=== PATIENT | female | born 2000 | race Hispanic/Latino ===

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

== ENCOUNTER 2024-07-24 09:54 | Emergency (ER) | payer SELFPAY ==
[~2024-07-24] VITALS: Ht 162.6 cm; Wt 79.4 kg
--- NOTE | 2024-07-24 10:59 | ERN ---
ED Note History of Present Illness Stated Complaint: THROAT HURTS Chief Complaint: Sore Throat Time Seen by MD: 09:57 Dictation: 24-year-old female presents to the ED for evaluation of throat pain goes onset one day ago. Patient denies any fever, cough or any other associated symptoms at this time. Patient states she had pain while swallowing food this morning. Allergies: Coded Allergies: No Known Drug Allergies (Unverified Allergy, Unknown, 07/24/24) Past Medical History Past Medical History: Gallstones Surgical History: None Review of System Dictation Constitutional: Negative for fever,chills, and weight loss Eyes: Negative for injury, pain,redness, and discharge ENT: Positive for throat pain Negative for injury or swelling Cardiovascular: Negative for chest pain, palpitations, and edema Respiratory: Negative for shortness of breath, cough, and wheezing, Abdomen/GI: Negative for abdominal pain, nausea, vomiting, diarrhea, and constipation Back: Negative for injury and pain : Negative for injury, bleeding and discharge MS/Extremity: Negative for injury and deformity Skin: Negative for rash, and discoloration Neuro: Negative for headache, weakness, numbness, tingling, and seizure Psych: Negative for suicide ideation, homicidal ideation, and hallucinations Initial Vital Sign VS Vital Signs Date Time Temp Pulse Resp B/P (MAP) Pulse Ox O2 Delivery O2 Flow Rate FiO2 07/24/24 09:55 98.4 82 12 122/80 100 Room Air 0 07/24/24 11:23 21 Physical Exam Dictation General: awake, alert, NAD Head/Face: Normocephalic, atraumatic Eyes: PERRL, EOMI, vision at baseline ENT: oral cavity clear, TMs clear, no signs of infection Neck: Trachea midline, supple, no nuchal rigidity Cardiovascular: RRR, normal S1/S2, No MRGs, no JVD Respiratory: CTAB, no respiratory distress, No rales or wheezes Abdomen: Soft, non-tender, non-distended, normal bowel sounds, no guarding or rebound. Skin: Warm, dry, normal turgor, no rash MS/Extremity: Pulses equal, no cyanosis, neurovascular intact, FROM Neuro: COAx4, GCS 15, strength 5/5, CN 2-12 intact, normal cerebellar exam, normal gait, Psych: Normal behavior, mood, and affect normal Results (Laboratory/Radiology) Laboratory/Radiology Laboratory Tests Test 07/24/24 10:00 Group A Streptococcus Rapid negative (NEGATIVE) Labs Reviewed?: Yes ED Course ED Course Orders Procedure Category Date Status Time Rapid (Group A Strep) LAB 07/24/24 Complete 09:56 Covid19 (Sars Antigen LAB 07/24/24 Logged Rapid) 10:02 Influenza Type A & B, LAB 07/24/24 Logged Rapid 10:02 Mag/Alum/Simeth 30ml PHA 07/24/24 Complete (Maalox Plus 30ml) 11:00 Current Medications Medications (Trade) Dose Ordered Sig/Trisha Route PRN Reason Start Time Stop Time Status Last Admin Dose Admin Al Hydroxide/Mg Hydroxide (MAALox PLUS 30ML) 15 ml ONCE ONCE PO 07/24/24 11:00 07/24/24 11:01 DC 07/24/24 11:17 Vital Signs Date Time Temp Pulse Resp B/P (MAP) Pulse Ox O2 Delivery O2 Flow Rate FiO2 07/24/24 11:23 98.1 59 17 116/64 98 Room Air* 0 21 07/24/24 09:55 98.4 82 12 122/80 100 Room Air 0 Medical Decision Making MDM MDM: Differential diagnosis: Sore throat, strep throat Risk of complication and/or morbidity or mortality of patient management: None Medications-Per medication reconciliation Need for hospitalization: Patient does not meet criteria for hospitalization. Need for emergency major/minor surgery: No There are no social concerns with this patient. I independently interpreted the test that were performed, results were reviewed by me and considered findings on radiology if ordered. DX & DISP Disposition: Discharge Departure Impression: Primary Impression: Sore throat Condition: Stable Referrals: SELF,REFERRAL (PCP) TRISTA REYES MD July 24, 2024 10:59
[2024-07-24] MEDS: MAG/ALUM/SIMETH 30 ML UDCUP PO ONE (11:17)
[2024-07-24 11:23] VITALS: BP 116/64; PULSE 59; RESP 17; TEMP 98; O2SAT 98
== END 2024-07-24 11:32 | disposition home or self-care (01) ==
LOC: EDH 09:54
DX: J02.9 Acute pharyngitis, unspecified (principal)
CPT/HCPCS: 87880; 99283

== ENCOUNTER 2024-08-28 01:30 | Inpatient (IN) | payer SELFPAY ==
[~2024-08-28] VITALS: Ht 162.6 cm; Wt 77.6 kg
--- NOTE | 2024-08-28 01:44 | ERN ---
ED Note History of Present Illness Stated Complaint: ABD PAIN Chief Complaint: Abdominal Pain Time Seen by MD: 01:34 Time Seen by Midlevel: 01:38 Dictation: Ms. Perez is a 24 year old female with history of cholelithiasis who presented to the Emergency Department this morning for evaluation of abdominal pain. She states that approximately 1 hour ago she developed right upper quadrant pain which she rated 10/10 and accompanied by nausea with emesis x4. She states the pain occurred after eating some fried chicken strips. She states she had a similar episode, albeit not as severe, in February 2024 and was told she had gallstones. She denies recent illness, fever, chills, shortness of breath, cough, chest pain, palpitations, edema, hematemesis, constipation, diarrhea, melena, hematochezia, dysuria, headache, dizziness, or focal weakness/paresthesia Allergies: Coded Allergies: No Known Drug Allergies (Unverified Allergy, Unknown, 07/24/24) Past Medical History Past Medical History: Gallstones Surgical History: None PSYCH History: no pertinent psych hx Social History: Negative, Lives with family RN Note Reviewed/Agreed w/PFSH: Yes Review of System Dictation REVIEW OF SYSTEMS: CONSTITUTIONAL: Patient denies fevers, chills, sweats and weight changes. EYES: Patient denies any visual symptoms. EARS, NOSE, AND THROAT: No difficulties with hearing. No symptoms of rhinitis or sore throat. CARDIOVASCULAR: Patient denies chest pains, palpitations, orthopnea and paroxysmal nocturnal dyspnea. RESPIRATORY: No dyspnea on exertion, no wheezing or cough. GI: No diarrhea, constipation, hematochezia or melena. Reports right upper quadrant abdominal pain accompanied by nausea and vomiting. Symptoms started after eating some fried chicken strips. States she was diagnosed with gallstones in February. : No urinary hesitancy or dribbling. No nocturia or urinary frequency. No abnormal urethral discharge. MUSCULOSKELETAL: No myalgias or arthralgias. NEUROLOGIC: No chronic headaches, no seizures. Patient denies numbness, tingling or weakness. PSYCHIATRIC: Patient denies problems with mood disturbance. No problems with anxiety. ENDOCRINE: No excessive urination or excessive thirst. DERMATOLOGIC: Patient denies any rashes or skin changes. Initial Vital Sign VS Vital Signs Date Time Temp Pulse Resp B/P (MAP) Pulse Ox O2 Delivery O2 Flow Rate FiO2 08/28/24 01:31 97.2 66 18 129/87 98 Room Air 08/28/24 02:08 0 21 Physical Exam Dictation Vital signs: Reviewed. Afebrile. Constitutional: Restless/uncomfortable. Mother at bedside. Head/Face: Normocephalic, atraumatic. Eyes: Periorbital areas with no swelling, redness, or edema. Lids and lashes are normal. Conjunctival injection is absent. Sclera anicteric. Pupils equal, round, reactive to light. ENT: Pinnas intact and no signs of trauma or erythema. Ear canals clear and no discharge. TMs no erythema. No nasal discharge or bleeding noted. Oropharynx with no exudate, redness, swelling, masses, exudates, or evidence of obstruction. Uvula midline. Mucous membranes slightly dry. Neck: Trachea midline, no masses palpated, and no cervical lymphadenopathy. No swelling. Supple, full range of motion. Chest/Axilla: No tenderness, no crepitus, no paradoxical movement, no retractions. Cardiovascular: Regular rate, regular rhythm, no murmur, no gallops. Symmetric pulses. No peripheral edema. Respiratory: Respirations even and unlabored. Lung sounds clear; no wheezes, rales or rhonchi. Room air spo2 98%. Gastrointestinal: Inspection is normal. No distention is appreciated. Bowel sounds are normal. No mass or organomegaly . Tenderness RUQ. + [place] sign. : Negative CVA tenderness bilaterally. Has not yet voided. Neurological: Normal speech, gross motor function intact, gross sensory function intact. No focal weakness/Paresthesia. Musculoskeletal/Extremities: All extremities have full range of motion, no pain or tenderness on palpation. Symmetric pulses. Integumentary: Intact. Skin is normal color (not jaundice, warm, and dry. Cap refill less than 2 seconds. Results (Laboratory/Radiology) Laboratory/Radiology Laboratory Tests Test 08/28/24 01:55 08/28/24 03:07 White Blood Count 19.1 K/uL (4.8-10.8) H Red Blood Count 4.63 MIL/uL (4.00-5.50) Hemoglobin 12.4 g/dL (12.0-16.0) Hematocrit 39.2 % (36-48) Mean Corpuscular Volume 84.7 fL (79-99) Mean Corpuscular Hemoglobin 26.8 pg (27.0-33.0) L Mean Corpuscular Hemoglobin Concent 31.6 g/dL (32.0-36.0) L Red Cell Distribution Width 13.6 % (11.0-15.5) Platelet Count 429 K/uL (130-400) H Mean Platelet Volume 9.6 fL (7.5-10.5) Immature Granulocyte % (Auto) 0.4 % (0-1) Neutrophils (%) (Auto) 88.4 % (40.0-77.0) H Lymphocytes (%) (Auto) 8.2 % (21.0-51.0) L Monocytes (%) (Auto) 2.7 % (3.0-13.0) L Eosinophils (%) (Auto) 0.1 % (0.0-8.0) Basophils (%) (Auto) 0.2 % (0.0-5.0) Neutrophils # (Auto) 16.9 K/uL (1.8-7.7) H Lymphocytes # (Auto) 1.6 K/uL (1.0-4.8) Monocytes # (Auto) 0.5 K/uL (0.1-1.0) Eosinophils # (Auto) 0.02 K/uL (0.00-0.70) Basophils # (Auto) 0.04 K/uL (0.00-0.20) Absolute Immature Granulocyte (auto 0.08 K/uL (0-1) Nucleated Red Blood Cells 0.0 % (0.0-0.19) White Cell Morphology Comment See comments Sodium Level 141 mmol/L (136-145) Potassium Level 3.4 mmol/L (3.5-5.1) L Chloride Level 102 mmol/L (101-111) Carbon Dioxide Level 29 mmol/L (21-32) Blood Urea Nitrogen 15 mg/dL (7-18) Creatinine 0.7 mg/dL (0.5-1.0) Glomerular Filtration Rate Calc 125 mL/min (>90) Random Glucose 135 mg/dL (70-105) H Total Calcium 8.8 mg/dL (8.5-10.1) Total Bilirubin 0.3 mg/dL (0.2-1.0) Direct Bilirubin 0.1 mg/dL (0.0-0.3) Aspartate Amino Transf (AST/SGOT) 21 U/L (10-37) Alanine Aminotransferase (ALT/SGPT) 40 U/L (12-78) Alkaline Phosphatase 91 U/L (50-136) Total Protein 7.6 g/dL (6.0-8.3) Albumin 3.9 g/dL (3.5-5.0) Lipase 56 U/L (16-77) Urine Color YELLOW (YELLOW) Urine Appearance CLOUDY (CLEAR) H Urine pH 5.5 (5.0-8.0) Urine Specific [place] 1.028 (1.001-1.031) Urine Protein 20 mg/dL (NEGATIVE) H Urine Glucose (UA) NEGATIVE mg/dL (NEGATIVE) Urine Ketones 60 mg/dL (NEGATIVE) H Urine Occult Blood SMALL (NEGATIVE) H Urine Nitrate NEGATIVE (NEGATIVE) Urine Bilirubin NEGATIVE mg/dL (NEGATIVE) Urine Urobilinogen 0.2 mg/dL (0.2-1.0) Urine Leukocyte Esterase NEGATIVE Annette/uL Urine RBC 6-10 /HPF (0-1) H Urine WBC 6-10 /HPF (0-1) H Urine Squamous Epithelial Cells FEW /HPF (0-2) Urine Amorphous Crystals (Auto) RARE /LPF (None Seen) Urine Bacteria None /HPF (None Seen) Urine HCG, Qualitative NEGATIVE (NEGATIVE) Labs Reviewed?: Yes CT Scan Comment: RUQ US preliminary read: Small stone in neck of the gallbladder Wall thickness 2.5mm CBD 2.5mm ED Course ED Course Orders Procedure Category Date Status Time Cbc With Differential LAB 08/28/24 Complete 01:34 Basic Metabolic Panel LAB 08/28/24 Complete 01:34 Hepatic Function Panel LAB 08/28/24 Complete 01:34 Urinalysis Profile LAB 08/28/24 Complete 01:34 ,Urine Test LAB 08/28/24 Complete 01:34 0.9%Nacl 1000ml (Ns PHA 08/28/24 Complete 1000ml) 02:00 Ondansetron 4mg Inj PHA 08/28/24 Complete (Zofran 4mg Inj) 02:00 Hydromorphone 0.5mg PHA 08/28/24 Complete Syg (Dilaudid 0.5mg 02:00 Us Abdominal Ruq\Ltd US 08/28/24 Taken 01:34 Drug Screen Urine LAB 08/28/24 In Process 01:43 Hydromorphone 0.5mg PHA 08/28/24 Complete Syg (Dilaudid 0.5mg 03:00 Zosyn 3.375gm+Ns 50ml PHA 08/28/24 Complete (Zosyn 3.375gm+Ns 03:30 Lipase LAB 08/28/24 Complete 03:04 Pantoprazole 40mg Inj PHA 08/28/24 Complete (Protonix 40mg Inj 03:30 Culture Urine TERESA 08/28/24 In Process 03:29 Current Medications Medications (Trade) Dose Ordered Sig/Trisha Route PRN Reason Start Time Stop Time Status Last Admin Dose Admin Hydromorphone HCl (DiLAUDid 0.5MG INJ) 0.5 mg ONCE ONCE IVP 08/28/24 02:00 08/28/24 02:01 DC 08/28/24 02:04 Hydromorphone HCl (DiLAUDid 0.5MG INJ) 0.5 mg ONCE ONCE IVP 08/28/24 03:00 08/28/24 03:01 DC 08/28/24 03:16 Ondansetron HCl (zoFRAN 4MG INJ) 4 mg ONCE ONCE IVP 08/28/24 02:00 08/28/24 02:01 DC 08/28/24 02:04 Pantoprazole Sodium (PROTonix 40MG INJ) 40 mg ONCE ONCE IVP 08/28/24 03:30 08/28/24 03:31 DC Piperacillin Sod/ Tazobactam Sod (Zosyn 3.375gm+NS 50ml) 3.375 gm ONCE ONCE IV 08/28/24 03:30 08/28/24 03:31 DC 08/28/24 03:16 Sodium Chloride 1,000 ml @ 0 mls/hr ONCE ONCE IV 08/28/24 02:00 08/28/24 02:01 DC 08/28/24 02:03 Vital Signs Date Time Temp Pulse Resp B/P (MAP) Pulse Ox O2 Delivery O2 Flow Rate FiO2 08/28/24 02:08 97.5 65 16 119/73 98 Room Air* 0 21 08/28/24 01:31 97.2 66 18 129/87 98 Room Air Vital signs remained stable; afebrile and normotensive with room air SpO2 98%. Laboratory findings as noted below. WBC 19.1, K 3.4, and glucose 135. Lipase 56. UA + protein, ketones, and blood. HCG negative. RUQ ultrasound revealed small stone in the gallbladder neck, GB wall 2.5 mm, and CBD 2.5 mm; cholelithiasis without cholecystitis. She continues with abdominal pain and nausea despite doses Dilaudid. While in the ED she also received doses Zofran, Zosyn, and NS 1000ml IV as bolus. Findings were discussed with SAI Bentley who accepts patient for admission to Hospitalist group. Medical Decision Making MDM MDM: Differential diagnosis: Cholelithiasis, cholecystitis, UTI Rationale: Tests considered and ordered secondary to shared decision making include: labs, ECG and radiology Previous outside records reviewed: Old ER visits. Risk of complication and/or morbidity or mortality of patient management: None Medications-Per medication reconciliation Need for hospitalization: Patient does meet criteria for hospitalization. Need for emergency major/minor surgery: No There are no social concerns with this patient. Prescription drug management Prescriptions will include symptomatic care Patient's prior external medical records from other ER visits were reviewed by me as indicated. Prior testing and results from previous visits were reviewed. Prior tests were taken into account with medical decision making and resource utilization, independent historian/historians were used to obtain complete me dical history. I independently interpreted the test that were performed, results were reviewed by me and considered findings on radiology if ordered. Medical management and examination interpretation discussions were had by me with other qualified healthcare professionals as indicated for the patient's care. DX & DISP Disposition: Inpatient Departure Impression: Primary Impression: Cholelithiasis Additional Impressions: Hypokalemia, Intractable right upper quadrant abdominal pain, Leukocytosis Condition: Stable Assign Patient to: Dr. Charles Batista Referrals: SELF,REFERRAL (PCP) ELIN LALA NP Aug 28, 2024 01:43
[2024-08-28] MEDS: 0.9%NACL 1000ML 1,000 ML IV ONE (02:03)
[2024-08-28] MEDS: ondanSETRON 4MG INJ IVP ONE (02:04)
[2024-08-28] MEDS: hydroMORPHone 0.5 MG SYG (0.5MG/0.5ML) IVP ONE ×2 (02:04→03:16)
[2024-08-28 02:15] LABS: BASOPHILS # (AUTO) 0.04 K/uL (0.00-0.20); BASOPHILS % (AUTO) 0.2 % (0.0-5.0); EOSINOPHILS # (AUTO) 0.02 K/uL (0.00-0.70); EOSINOPHILS % (AUTO) 0.1 % (0.0-8.0); HEMATOCRIT 39.2 % (36-48); IMMATURE GRANULOCYTE ABSOLUTE 0.08 K/uL (0-1); LYMPHOCYTES # (AUTO) 1.6 K/uL (1.0-4.8); LYMPHOCYTES % (AUTO) 8.2 % (21.0-51.0); MEAN CORPUSCULAR HEMOGLOBIN 26.8 pg (27.0-33.0); MEAN CORPUSCULAR HGB CONC 31.6 g/dL (32.0-36.0); MEAN CORPUSCULAR VOLUME 84.7 fL (79-99); MONOCYTES # (AUTO) 0.5 K/uL (0.1-1.0); MONOCYTES % (AUTO) 2.7 % (3.0-13.0); NEUTROPHILS # (AUTO) 16.9 K/uL (1.8-7.7); NEUTROPHILS % (AUTO) 88.4 % (40.0-77.0); PLATELET COUNT (AUTO) 429 K/uL (130-400); RED BLOOD CELL COUNT(AUTO) 4.63 MIL/uL (4.00-5.50); RED CELL DISTRIBUTION WIDTH 13.6 % (11.0-15.5); WHITE BLOOD COUNT (AUTO) 19.1 K/uL (4.8-10.8)
[2024-08-28 02:26] LABS: CREATININE 0.7 mg/dL (0.5-1.0); POTASSIUM 3.4 mmol/L (3.5-5.1)
[2024-08-28 02:30] LABS: ALBUMIN 3.9 g/dL (3.5-5.0); BILIRUBIN,DIRECT 0.1 mg/dL (0.0-0.3); BILIRUBIN,TOTAL 0.3 mg/dL (0.2-1.0); TOTAL PROTEIN, SERUM 7.6 g/dL (6.0-8.3)
[2024-08-28] MEDS: ZOSYN 3.375GM +NS 50ML IV ONE (03:16)
[2024-08-28 03:24] LABS: APPEARANCE,URINE CLOUDY (CLEAR); BILIRUBIN,URINE NEGATIVE (NEGATIVE); COLOR,URINE YELLOW (YELLOW); GLUCOSE, URINE (UA) NEGATIVE (NEGATIVE); KETONES,URINE 60 mg/dL (NEGATIVE); LEUKOCYTE ESTERASE ,URINE NEGATIVE Leu/uL (NEGATIVE); NITRATE,URINE NEGATIVE (NEGATIVE); OCCULT BLOOD,URINE SMALL (NEGATIVE); PH,URINE 5.5 (5.0-8.0); PROTEIN,URINE 20 mg/dL (NEGATIVE); UROBILINOGEN,URINE 0.2 mg/dL (0.2-1.0)
[2024-08-28 03:26] LABS: ADD UA MICROSCOPIC YES
[2024-08-28 03:29] LABS: HCG,QUALITATIVE URINE NEGATIVE (NEGATIVE); MUCUS,URINE MANY LPF (None Seen); SQUAMOUS EPITHELIAL CELL,UR FEW /HPF (0-2)
[2024-08-28] MEDS: PANTOPrazole 40 MG/VIAL IVP ONE (03:44)
[2024-08-28 03:50] LABS: AMPHET/METH SCREEN,URINE NEGATIVE (NEGATIVE); BARBITURATE SCREEN, URINE NEGATIVE (NEGATIVE); BENZODIAZEPINES SCREEN,URINE NEGATIVE (NEGATIVE); CANNABINOID SCREEN,URINE POSITIVE (NEGATIVE); COCAINE SCREEN,URINE NEGATIVE (NEGATIVE); OPIATE SCREEN,URINE NEGATIVE (NEGATIVE); PHENCYCLIDINE SCREEN,URINE NEGATIVE (NEGATIVE)
--- NOTE | 2024-08-28 03:59 | NUR ---
Assumed patient care at this time from El BARAJAS./DONNELL
--- NOTE | 2024-08-28 04:25 | HP ---
History of Present Illness Reason for Visit: abdominal pain History of Present Illness Ms. Perez is a 24-year-old female that was seen and examined today on 08/28/2024. Patient is a good historian of personal health. Patient's mother Karuna is at bedside Patient reports that she came to the emergency department with a chief complaint of abdominal pain. Onset was midnight on 08/28/2024. Location is right upper quadrant. Duration is on and off. Character is described as sharp and pressure. There was no alleviating factors. Symptoms are aggravated with eating. Patient reports associated vomiting x5 episodes. Patient also reports she was diagnosed with gallstones in February of 2024. Today in the emergency department WBCs 19, potassium 3.4. Abdominal ultrasound pending radiology interpretation however preliminary report suggests that there was indeed gallstones as verbalize with the this patient from prior diagnosis. Emergency room physician recommended that patient be admitted so she could be evaluated by General surgery Service. Past Medical History ADDITIONAL PAST MEDICAL HISTORY: [Cholelithiasis diagnosed in February of 2024] SOCIAL HISTORY: [Negative for tobacco use, alcohol use. Patient admits to occasional use of marijuana. Patient lives with the mother, Zohra. Patient is typically independent of all her ADLs. Patient denies difficulty paying her bills.] SURGICAL HISTORY: [place] teeth extraction x4] Review of Systems General: No Fever, No Chills, No Night Sweats, No Fatigue, No Malaise, No Appetite, No Other HEENT: No Head Aches, No Visual Changes, No Eye Pain, No Ear Pain, No Dysphasia, No Sinus Congestion, No Post Nasal Drip, No Sore Throat, No Other Pulmonary: No Dyspnea, No Cough, No Pleuritic Chest Pain, No Other Cardiovascular: No: Chest Pain, Palpitations, Orthopnea, Paroxysmal Noc. Dyspnea, Edema, Lt Headedness, Other Gastrointestinal: Nausea, Vomiting, Abdominal Pain; No: Diarrhea, Constipation, Melena, Hematochezia, Other Genitourinary: No Dysuria, No Frequency, No Incontinence, No Hematuria, No Retention, No Other Musculoskeletal: No: other, neck pain, shoulder pain, arm pain, back pain, hand pain, leg pain, foot pain Skin: No Urticaria, No Rash, No Other Neurological: No: Weakness, Numbness, Incoordination, Change in speech, Confusion, Seizures, Other Allergies: Coded Allergies: No Known Drug Allergies (Unverified Allergy, Unknown, 07/24/24) Exam Vital Signs Vital Signs Date Time Temp Pulse Resp B/P (MAP) Pulse Ox O2 Delivery O2 Flow Rate FiO2 08/28/24 04:02 98.2 60 16 112/67 97 Room Air* 0 21 General Appearance: Alert, Oriented X3, Cooperative, No acute distress HEENT: Atraumatic, EOMI, Mucous membr. moist/pink Respiratory: Clear to auscultation, Normal air movement, NL respiratory effort Cardiovascular: Regular rate, Regular rhythm, Normal S1, Normal S2 Abdominal: Normal bowel sounds, Soft, No tenderness Extremities: No edema Skin: No significant lesion Neuro: Strength at 5/5 X4 ext, Sensation intact, Cranial nerves 3-12 NL Psych/Mental Status: Mental status NL, Mood NL, Thoughts/Content NL Assessment/Plan ASSESSMENT: [ Cholelithiasis, POA Leukocytosis, POA Hypokalemia, POA Nausea, POA Vomiting, POA ] PLAN: [ Admit patient to medical floor as inpatient status. Cholelithiasis: Patient will be followed by General surgery Service. Keep patient NPO except for medications with tiny sips of water Check preprocedure labs, CBC, BMP, magnesium, phosphorus, PTT, UA, type and screen, EKG, CXR Lactated Ringer's at 100 mL/HR IV fluid maintenance therapy Nausea, vomiting: As-needed antiemetic, Zofran As needed analgesia, morphine Leukocytosis: Empiric antibiotic therapy with Zosyn Check procalcitonin, follow up with the results Check lactic acid, follow up with the results Check blood culture, follow up with the results] Hypokalemia: Replace potassium per hospital protocol GI prophylaxis, famotidine DVT prophylaxis, Jamal's and SCDs ADVANCED CARE PLANNING 1. Which of the following were discussed? Hospice Care - Yes Therapeutic options - yes Advance Directives - Yes - patient states she does not have any advance directives in place at this time, however her mom can make decisions for her if she becomes unable. Other discussions - patient wishes to remain a full code at this time 2. Discussed with who? Patient 3. Voluntary nature of this service was explained to the patient? Yes 4. Amount of time spent - ___16 minutes____ 5. Reviewed by Physician? (if this service was performed by NPP) Yes This document was generated in part using voice recognition software, occasional wrong word or sound alike substitutions may have occurred due to the inherent limitations of voice recognition software. Read the chart carefully and recognize using context, where the substitutions have occurred. Although every effort was made to edit the content, director of quality improvement and typing errors may occur ATTESTATION BY PHYSICIAN I have seen and examined the patient. I reviewed the documentation, medical decision making, and treatment plan as noted by the mid-level provider above. I agree with the findings and plan of care. RIANA BAUM [facility] Aug 28, 2024 04:25
[2024-08-28] MEDS: LACTATED RINGERS 1000ML 1,000 ML IV SCH (04:26)
[2024-08-28] MEDS: PoTASSium chloRIDE 20MEQ/100ML 100 ML IV PRN (04:27)
[2024-08-28] MEDS ORDERED: hydrALAZine 20MG/ML VIAL IV PRN (04:30)
[2024-08-28 04:31] LABS: INR 1.04 (0.85-1.15)
[2024-08-28 04:32] LABS: MAGNESIUM 1.9 mg/dL (1.80-2.40); PHOSPHORUS 2.6 mg/dL (2.5-4.9)
--- NOTE | 2024-08-28 04:39 | EKG ---
[facility] Test Date: 2024-08-28 Test Time: 04:36:53 Pat Name: ROLANDO JONES Department: [facility] Room: 327 Gender: F Director External Communications: [id number] : 2000 Requested By: RIANA BAUM Order Number: [id number] Reading MD: Manish Weir Measurements Intervals [place] Rate: 53 P: -30 VT: 141 QRS: 55 QRSD: 81 T: 32 QT: 421 QTc: 396 Interpretive Statements Sinus rhythm No previous ECG available for comparison Electronically Signed On 08-28-2024 14:44:37 CDT by Manish Weir Please click the below link to view image of tracing.
[2024-08-28] MEDS: morPHINE 2 MG SYG IVP PRN (06:42)
--- NOTE | 2024-08-28 07:32 | HMCIMG ---
US ABDOMINAL RUQ\E\LTD HISTORY: Pain COMPARISON: None TECHNIQUE: Right upper quadrant abdominal ultrasound study was performed. FINDINGS: Liver measured 14 cm. The visualized portion of the pancreas is within normal limits. Liver is echogenic consistent with liver parenchymal disease. Small gallstone is seen in the gallbladder neck region. Common duct measures 2.5 mm. No evidence of gallbladder wall thickening is seen. Right kidney measures 10 x 5 x 5 cm. No hydronephrosis is seen of the right kidney. IMPRESSION: 1. Small gallstone in the gallbladder neck region. No ductal dilatation is seen. 2. No hydronephrosis is seen.
--- NOTE | 2024-08-28 08:11 | HMCIMG ---
CHEST 1VW HISTORY: Preop COMPARISON: None FINDINGS: A frontal projection of the chest was obtained. No acute pulmonary infiltrates is seen. The heart is normal in size. No evidence of aortic calcification is seen. IMPRESSION: 1. No acute pulmonary infiltrate is seen.
[2024-08-28 09:52] LABS: MEAN CORPUSCULAR HEMOGLOBIN 26.6 pg (27.0-33.0); MEAN CORPUSCULAR HGB CONC 30.8 g/dL (32.0-36.0); MEAN CORPUSCULAR VOLUME 86.4 fL (79-99); PLATELET COUNT (AUTO) 406 K/uL (130-400); RED CELL DISTRIBUTION WIDTH 13.7 % (11.0-15.5); WHITE BLOOD COUNT (AUTO) 20.1 K/uL (4.8-10.8)
[2024-08-28 09:59] LABS: CREATININE 0.6 mg/dL (0.5-1.0); POTASSIUM 4.2 mmol/L (3.5-5.1)
[2024-08-28 10:03] LABS: ALBUMIN 3.6 g/dL (3.5-5.0); BILIRUBIN,TOTAL 0.4 mg/dL (0.2-1.0); TOTAL PROTEIN, SERUM 7.5 g/dL (6.0-8.3)
[2024-08-28] MEDS: FAMOTIDINE 20MG TAB PO SCH (10:31)
[2024-08-28] MEDS: acetaMINOPHEN 325 MG TAB PO PRN (10:31)
--- NOTE | 2024-08-28 11:28 | NUR ---
GEN SURGEON DR BARTLETT WOULD LIKE PT TO HAVE A HIDA SCAN STAT.
[2024-08-28 11:31] VITALS: TEMP 97.9
--- NOTE | 2024-08-28 11:42 | NUR ---
FIRST ATTEMP AT REPORT
[2024-08-28] MEDS: ZOSYN 3.375GM +NS 50ML IV SCH (11:49)
--- NOTE | 2024-08-28 11:50 | NUR ---
DR WONG AT BEDSIDE
--- NOTE | 2024-08-28 12:02 | NUR ---
SECOND ATTEMPT AT CALLING REPORT
--- NOTE | 2024-08-28 12:15 | NUR ---
REPORT GIVEN TO YVROSE
[2024-08-28 12:40] VITALS: BP 102/54; PULSE 62; RESP 18; TEMP 97.7
--- NOTE | 2024-08-28 14:56 | NUR ---
MET W PT AND MOM AT BEDSIDE FOR DC PLANNING. PT SLEEPING, MOM SUPPLIED INFO, MOM STATES PATIENT LIVES WITH HER AND A SIBLING; IS FULLY INDEPENDENT,CURRENTLY UNEMPLOYED, NO DME OR SERVICES. DRIVES, MOM WILL PROVIDE TRANSPORT HOME. [employer] INFO GIVEN. STATES PT IS CLIENT OF [facility] AND GOES THERE TFOR ALL HER HEALTHCARE NEEDSMOM STATED PATIENT " HAS SOME KIND OF INSURANCE IT IS LIKE A MEDICAID BUT I DON'T HAVE THE PAPERWORK' ADVISED MOM TO TRY TO FIND TO BRING TO HOSPITAL. DCP IS HOME. Addendum: 08/28/24 at 1500 by GREGORY JAMES RN CM Amended: Links added.
[2024-08-28 16:00] VITALS: BP 100/52; PULSE 54; RESP 19; TEMP 98
--- NOTE | 2024-08-28 16:49 | PN ---
Patient was downstairs getting HIDA scan. I stopped by her room twice to evaluate her. Spoke to her mother and told her that if the HIDA scan is positive for acute cholecystitis then I will perform a robotic cholecystectomy. I will make her NPO at midnight just in case the HIDA scan comes back positive for acute cholecystitis. Vitals/Labs Vital Signs Date Time Temp Pulse Resp B/P (MAP) Pulse Ox O2 Delivery O2 Flow Rate FiO2 08/28/24 16:00 98.1 54 19 100/52 100 Room Air 08/28/24 12:40 0 21 Laboratory Tests 08/28/24 01:55 08/28/24 07:26 Medications Current Medications Sodium Chloride 1,000 ml @ 0 mls/hr ONCE ONCE IV Last administered on 08/28/24at 02:03; Start 08/28/24 at 02:00; Stop 08/28/24 at 02:01; Status DC Ondansetron HCl 4 mg ONCE ONCE IVP Last administered on 08/28/24at 02:04; Start 08/28/24 at 02:00; Stop 08/28/24 at 02:01; Status DC Hydromorphone HCl 0.5 mg ONCE ONCE IVP Last administered on 08/28/24at 02:04; Start 08/28/24 at 02:00; Stop 08/28/24 at 02:01; Status DC Hydromorphone HCl 0.5 mg ONCE ONCE IVP Last administered on 08/28/24at 03:16; Start 08/28/24 at 03:00; Stop 08/28/24 at 03:01; Status DC Piperacillin Sod/ Tazobactam Sod 3.375 gm ONCE ONCE IV Last administered on 08/28/24at 03:16; Start 08/28/24 at 03:30; Stop 08/28/24 at 03:31; Status DC Pantoprazole Sodium 40 mg ONCE ONCE IVP Last administered on 08/28/24at 03:44; Start 08/28/24 at 03:30; Stop 08/28/24 at 03:31; Status DC Acetaminophen 650 mg Q6H PRN PO Last administered on 08/28/24at 10:31; Start 08/28/24 at 04:30; Stop 09/27/24 at 04:29 Famotidine 20 mg DAILY PO Last administered on 08/28/24at 10:31; Start 08/28/24 at 09:00; Stop 09/27/24 at 08:59 Ondansetron HCl 4 mg Q6H PRN IV; Start 08/28/24 at 04:30; Stop 09/27/24 at 04:29 Morphine Sulfate 2 mg Q4H PRN IVP Last administered on 08/28/24at 06:42; Start 08/28/24 at 04:30; Stop 09/04/24 at 04:29 Hydralazine HCl 10 mg Q6H PRN IV; Start 08/28/24 at 04:30; Stop 09/27/24 at 04:29 Lactated Ringer's 1,000 ml @ 100 mls/hr Q10H IV Last administered on 08/28/24at 04:26; Start 08/28/24 at 04:30; Stop 09/27/24 at 04:29 Potassium Chloride 100 ml @ 50 mls/hr AD PRN IV Last administered on 08/28/24at 04:27; Start 08/28/24 at 04:30; Stop 09/27/24 at 04:29 Magnesium Sulfate 50 ml @ 0 mls/hr PROTOCOL PRN IV; Start 08/28/24 at 04:30; Stop 09/27/24 at 04:29 Piperacillin Sod/ Tazobactam Sod 3.375 gm Q8H IV Last administered on 08/28/24at 11:49; Start 08/28/24 at 11:00; Stop 09/07/24 at 10:59 Ketorolac Tromethamine 15 mg Q6H PRN IV; Start 08/28/24 at 12:30; Stop 09/02/24 at 12:29 LANEY BARTLETT MD Aug 28, 2024 16:49
--- NOTE | 2024-08-28 16:56 | HMCIMG ---
NM HIDA WITH EF/CCK REASON: CHOLELITHIASIS. COMPARISON: None TECHNIQUE: Hepatobiliary imaging study was performed with 7 mCi of technetium Choletec through intravenous route. 2 hour delayed images were obtained. FINDINGS: Normal visualization of bile activity is seen within one hour. There is nonvisualization of gallbladder activity at 2 hours suggestive of acute cholecystitis. IMPRESSION: Nonvisualization of gallbladder activity at 2 hours suggestive of acute cholecystitis in appropriate setting.
[2024-08-28 20:00] VITALS: BP 116/65; PULSE 74; RESP 20; TEMP 98.4; O2SAT 100
[2024-08-28] MEDS: ketOROlac 15MG/ML VIAL (15MG/ML) IV PRN (20:37)
[2024-08-29] VITALS (29 sets, daily range): BP systolic 92–128; BP diastolic 49–82; PULSE 54–80; RESP 14–20; TEMP 96.9–99.7; O2SAT 97–100
[2024-08-29 05:06] LABS: BASOPHILS # (AUTO) 0.03 K/uL (0.00-0.20); BASOPHILS % (AUTO) 0.2 % (0.0-5.0); EOSINOPHILS # (AUTO) 0.03 K/uL (0.00-0.70); EOSINOPHILS % (AUTO) 0.2 % (0.0-8.0); HEMATOCRIT 32.3 % (36-48); IMMATURE GRANULOCYTE ABSOLUTE 0.05 K/uL (0-1); LYMPHOCYTES # (AUTO) 3.4 K/uL (1.0-4.8); LYMPHOCYTES % (AUTO) 27.8 % (21.0-51.0); MEAN CORPUSCULAR HEMOGLOBIN 27.1 pg (27.0-33.0); MEAN CORPUSCULAR HGB CONC 31.9 g/dL (32.0-36.0); MONOCYTES # (AUTO) 0.9 K/uL (0.1-1.0); MONOCYTES % (AUTO) 7.6 % (3.0-13.0); NEUTROPHILS # (AUTO) 7.8 K/uL (1.8-7.7); NEUTROPHILS % (AUTO) 63.8 % (40.0-77.0); PLATELET COUNT (AUTO) 356 K/uL (130-400); RED CELL DISTRIBUTION WIDTH 13.8 % (11.0-15.5); WHITE BLOOD COUNT (AUTO) 12.2 K/uL (4.8-10.8)
[2024-08-29 05:13] LABS: CREATININE 0.6 mg/dL (0.5-1.0); POTASSIUM 3.8 mmol/L (3.5-5.1)
--- NOTE | 2024-08-29 09:32 | PN ---
[facility] PROGRESS NOTE Date of Service: Aug 29, 2024 Time of Service: 09:27 SUBJECTIVE: Ms. Perez is a 24-year-old female that was seen and examined on 08/28/2024. Patient is a good historian of personal health. Patient's mother Karuna was at bedside Patient reported that she came to the emergency department with a chief complaint of abdominal pain. Location is right upper quadrant. Duration on and off. Character is described as sharp and pressure. There was no alleviating factors. Symptoms aggravated with eating. Patient reported associated vomiting x5 episodes. Patient also reported she was diagnosed with gallstones in February of 2024. In the emergency department WBCs 19, potassium 3.4. Chest x-ray no acute pulmonary infiltrates. Abdominal ultrasound small gallstones in the gallbladder neck region, no ductal dilatation seen, no hydronephrosis seen. Patient admitted for further evaluation and medical management. 08/29 patient admitted to the medical floor, blood pressure 105/59, afebrile, saturating normal on room air, white blood cell count trending down, 12.2, hemoglobin 10.3, hematocrit 32.3, platelet count of 356, sodium 139, potassium 3.8, BUN of 10, creatinine 0.6, total calcium 8.5, liver enzymes with a total bilirubin of 0.4, AST of 33, ALT of 47, alkaline phosphatase of 89. Toxicology screen positive for marijuana. Urine test negative. Patient evaluated by General surgery, HIDA scan requested, nonvisualization of gallbladder activity at 2:00 a.m. suggestive of acute cholecystitis. Patient on Zosyn IV pharmacy to dose. Currently on pain control with morphine 2 mg IV q.4 hours p.r.n. and Toradol 50 mg IV every 6 hours as needed. Counseling provided in terms of marijuana use. During my visit the patient comfortably in bed, alert oriented x3, getting good pain control with current medical management, NPO, scheduled for laparoscopic cholecystectomy today per discussion with the RN. REVIEW OF SYSTEMS CONSTITUTIONAL: Denies fevers, chills, or night sweats. No unintentional weight loss reported. NEUROLOGICAL: Denies headache, amaurosis fugax, motor weakness, sensory deficit, vertigo/spinning sensation, gait abnormalities, or tremors. ENT: No hearing loss, otalgia, otorrhea, rhinitis, rhinorrhea, hoarseness, or sore throat. CARDIOVASCULAR: Denies any exertional angina, dyspnea on exertion, orthopnea, paroxysmal nocturnal dyspnea, palpitations, life-threatening arrhythmias, claudication. PULMONARY: Denies any shortness of breath, cough, phlegm/sputum, hemoptysis, pleuritic chest pain. SLEEP: Denies morning headaches, daytime somnolence or napping. Denies difficulty falling asleep, staying asleep, waking from sleep. Denies knowledge of snoring. GASTROINTESTINAL: Denies any type of dysphagia to either liquids or solids. Denies nausea, vomiting, pyrosis, early satiety, abdominal pain, diarrhea, constipation, or changes in stool consistency or caliber. Denies coffee-ground emesis, hematemesis, hematochezia, or melanotic stools. GENITOURINARY: Denies frequency, urgency, nocturia, hematuria or incontinence (Storage/Irritative symptoms.) Low urinary stream, straining to void, urinary intermittency or hesitancy, splitting of the voiding stream, terminal dribbling. ENDOCRINOLOGIC: Denies polyuria, polydipsia, polyphagia or heat/cold intolerances. HEMATOLOGIC: Denies thrombophilia/previous clots, or coagulopathy/bleeding disorders. ONCOLOGIC: Denies personal history of malignancy. DERMATOLOGIC: Denies rashes or pruritus. PSYCHIATRIC: Denies any suicidal or homicidal ideation. Denies hallucinations. PHYSICAL EXAM GENERAL APPEARANCE: The patient is awake, alert, and oriented, in no acute cardiopulmonary distress. NEUROLOGICAL: Cranial nerves II-XII grossly intact. Motor is 5/5 in bilateral upper and lower extremities proximal to distal. No sensory deficits. HEENT: Face is symmetric. Pupils are equal and reactive. Extraocular movements are intact. NECK: Supple. No JVD. No thyromegaly. No submental, submandibular, pre-/postauricular, occipital or supraclavicular lymphadenopathy. CHEST: Normal chest expansion. No Telemetry. LUNGS: Absence of any rales, rhonchi or any wheezing. CARDIOVASCULAR: Regular. S1 and S2 normal. No appreciable rubs, murmurs or gallops. ABDOMEN: Soft, nontender, and nondistended. There is no rebound, voluntary guarding, or rigidity. : Deferred. No Hines. EXTREMITIES: Non-edematous and not cyanotic. No clubbing. Good capillary refill. SKIN: No skin breakdown. Vital Signs (last 8hr) Date Time Temp Pulse Resp B/P (MAP) Pulse Ox O2 Delivery O2 Flow Rate FiO2 08/29/24 07:56 99.7 78 18 105/59 97 Room Air 08/29/24 04:00 97.5 69 20 92/52 98 Room Air LABS: Laboratory: Test 08/29/24 04:55 08/28/24 07:26 08/28/24 03:07 08/28/24 01:55 Range/Units White Blood Count 12.2 #H 4.8-10.8 K/uL Red Blood Count 3.80 L 4.00-5.50 MIL/uL Hemoglobin 10.3 L 12.0-16.0 g/dL Hematocrit 32.3 L 36-48 % Mean Corpuscular Volume 85.0 79-99 fL Mean Corpuscular Hemoglobin 27.1 27.0-33.0 pg Mean Corpuscular Hemoglobin Concent 31.9 L 32.0-36.0 g/dL Red Cell Distribution Width 13.8 11.0-15.5 % Platelet Count 356 130-400 K/uL Mean Platelet Volume 9.6 7.5-10.5 fL Immature Granulocyte % (Auto) 0.4 0-1 % Neutrophils (%) (Auto) 63.8 40.0-77.0 % Lymphocytes (%) (Auto) 27.8 21.0-51.0 % Monocytes (%) (Auto) 7.6 3.0-13.0 % Eosinophils (%) (Auto) 0.2 0.0-8.0 % Basophils (%) (Auto) 0.2 0.0-5.0 % Neutrophils # (Auto) 7.8 H 1.8-7.7 K/uL Lymphocytes # (Auto) 3.4 1.0-4.8 K/uL Monocytes # (Auto) 0.9 0.1-1.0 K/uL Eosinophils # (Auto) 0.03 0.00-0.70 K/uL Basophils # (Auto) 0.03 0.00-0.20 K/uL Absolute Immature Granulocyte (auto 0.05 0-1 K/uL Nucleated Red Blood Cells 0.0 0.0-0.19 % Sodium Level 139 136-145 mmol/L Potassium Level 3.8 3.5-5.1 mmol/L Chloride Level 105 101-111 mmol/L Carbon Dioxide Level 30 21-32 mmol/L Blood Urea Nitrogen 10 7-18 mg/dL Creatinine 0.6 0.5-1.0 mg/dL Glomerular Filtration Rate Calc 130 >90 mL/min Random Glucose 84 70-105 mg/dL Total Calcium 8.5 8.5-10.1 mg/dL Red Blood Cell Morphology See comments Lactic Acid Level 0.9 0.8-2.5 mmol/L Magnesium Level 2.00 1.80-2.40 mg/dL Total Bilirubin 0.4 # 0.2-1.0 mg/dL Aspartate Amino Transf (AST/SGOT) 33 10-37 U/L Alanine Aminotransferase (ALT/SGPT) 47 12-78 U/L Alkaline Phosphatase 89 50-136 U/L Total Protein 7.5 6.0-8.3 g/dL Albumin 3.6 3.5-5.0 g/dL Urine Color YELLOW YELLOW Urine Appearance CLOUDY H CLEAR Urine pH 5.5 5.0-8.0 Urine Specific [place] 1.028 1.001-1.031 Urine Protein 20 H NEGATIVE mg/dL Urine Glucose (UA) NEGATIVE NEGATIVE mg/dL Urine Ketones 60 H NEGATIVE mg/dL Urine Occult Blood SMALL H NEGATIVE Urine Nitrate NEGATIVE NEGATIVE Urine Bilirubin NEGATIVE NEGATIVE mg/dL Urine Urobilinogen 0.2 0.2-1.0 mg/dL Urine Leukocyte Esterase NEGATIVE NEGATIVE Annette/uL Urine RBC 6-10 H 0-1 /HPF Urine WBC 6-10 H 0-1 /HPF Urine Squamous Epithelial Cells FEW 0-2 /HPF Urine Amorphous Crystals (Auto) RARE None Seen /LPF Urine Bacteria None None Seen /HPF Urine HCG, Qualitative NEGATIVE NEGATIVE Urine Opiates Screen NEGATIVE NEGATIVE Urine Barbiturates Screen NEGATIVE NEGATIVE Urine Phencyclidine Screen NEGATIVE NEGATIVE Urine Amphetamines Screen NEGATIVE NEGATIVE Urine Benzodiazepines Screen NEGATIVE NEGATIVE Urine Cocaine Screen NEGATIVE NEGATIVE Urine Marijuana (THC) Screen POSITIVE H NEGATIVE White Cell Morphology Comment See comments Prothrombin Time 11.0 9.6-11.6 SEC Prothromb Time International Ratio 1.04 0.85-1.15 Activated Partial Thromboplast Time 28.0 26.3-35.5 SEC Phosphorus Level 2.6 2.5-4.9 mg/dL Direct Bilirubin 0.1 0.0-0.3 mg/dL Lipase 56 16-77 U/L Procalcitonin < 0.05 L 0.05-0.5 ng/mL Current Medications Medications (Trade) Dose Ordered Sig/Trisha Route PRN Reason Start Time Stop Time Status Last Admin Dose Admin Acetaminophen (TYLenol 325MG TAB) 650 mg Q6H PRN PO TEMPERATURE GREATER THAN 101.5 08/28/24 04:30 09/27/24 04:29 08/28/24 10:31 650 MG Famotidine (Pepcid 20mg Tab) 20 mg DAILY PO 08/28/24 09:00 09/27/24 08:59 08/28/24 10:31 20 MG Hydralazine HCl (APRESOLine 20MG INJ) 10 mg Q6H PRN IV For:SBP above 160;DBP above 90 08/28/24 04:30 09/27/24 04:29 Ketorolac Tromethamine (toRADol) 15 mg Q6H PRN IV MODERATE PAIN (4-6) 08/28/24 12:30 09/02/24 12:29 08/28/24 20:37 15 MG Lactated Ringer's 1,000 ml @ 100 mls/hr Q10H IV 08/28/24 04:30 09/27/24 04:29 08/29/24 09:01 100 MLS/HR Magnesium Sulfate 50 ml @ 0 mls/hr PROTOCOL PRN IV h 08/28/24 04:30 09/27/24 04:29 Morphine Sulfate (morPHINE 2MG SYG) 2 mg Q4H PRN IVP SEVERE PAIN (7-10) 08/28/24 04:30 09/04/24 04:29 08/29/24 07:02 2 MG Ondansetron HCl (zoFRAN 4MG INJ) 4 mg Q6H PRN IV NAUSEA/VOMITING 08/28/24 04:30 09/27/24 04:29 Piperacillin Sod/ Tazobactam Sod (Zosyn 3.375gm+NS 50ml) 3.375 gm Q8H IV 08/28/24 11:00 09/07/24 10:59 08/29/24 02:31 3.375 GM Potassium Chloride 100 ml @ 50 mls/hr AD PRN IV POTASSIUM PROTOCOL 08/28/24 04:30 09/27/24 04:29 08/28/24 04:27 50 MLS/HR DIAGNOSTICS / RADIOLOGY: [ ] ASSESSMENT: Sepsis, POA Acute cholecystitis, POA Leukocytosis, POA Hypokalemia, POA Nausea, POA Vomiting, POA Toxicology screen positive for marijuana PLAN: patient admitted to the medical floor, blood pressure 105/59, afebrile, saturating normal on room air, white blood cell count trending down, 12.2, hemoglobin 10.3, hematocrit 32.3, platelet count of 356, sodium 139, potassium 3.8, BUN of 10, creatinine 0.6, total calcium 8.5, liver enzymes with a total bilirubin of 0.4, AST of 33, ALT of 47, alkaline phosphatase of 89. Toxicology screen positive for marijuana. Urine test negative. Patient evaluated by General surgery, HIDA scan requested, nonvisualization of gallbladder activity at 2:00 a.m. suggestive of acute cholecystitis. Patient on Zosyn IV pharmacy to dose. Currently on pain control with morphine 2 mg IV q.4 hours p.r.n. and Toradol 50 mg IV every 6 hours as needed. Counseling provided in terms of marijuana use. During my visit the patient comfortably in bed, alert oriented x3, getting good pain control with current medical management, NPO, scheduled for laparoscopic cholecystectomy today per discussion with the RN. NEURO: Minimize central acting medications as possible. Fall Precautions. Well lighted room through the day and minimize interruptions through the night to prevent acute delirium. PULMONARY: Supplemental 02 as needed BiPAP as necessary, for respiratory distress Titrate Fio2 to keep Spo2 > or = 90% DuoNebs and CPT as needed IS hourly while awake for pulmonary hygiene prn Out of bed to chair as tolerated Maintain aspiration precautions at all times CARDIOVASCULAR: Follow hemodynamics. Vital signs per facility protocol GI & NUTRITION: Continue nutritional support Aspirations precautions Prokinetic agents and laxatives as needed KIDNEYS & ELECTROLYTES: Strict monitoring of intake and output Daily weights Avoid nephrotoxic agents Monitor electrolytes and replace as needed Goal urine output of 30mL/hr or 0.5mL/kg/hr Medications to be dosed according to renal function. Avoid contrast if possible ENDOCRINE: Maintain blood glucose between 100-180 at all times. Insulin sliding scale for blood glucose management Hypoglycemia and hyperglycemia protocol in place INFECTIOUS DISEASE: Trend temperature, WBC and procalcitonin level Follow cultures, deescalate antibiotics as soon as possible. Panculture if new onset fever HEMATOLOGY & COAGULATION: Monitor H&H. Keep Hgb > 7 Transfuse 1 unit of PRBC for Hgb < 7 Transfuse 1 pack of platelets of platelets < 20, 000 Watch for any signs and symptoms of bleeding SKIN: Pressure ulcer prevention per facility protocol Specialty mattress as needed ORTHO/REHAB Continue PT/OT PRN: MEDICATIONS Tylenol 650 mg po every 4 hrs for fever zofran 4 mg IV every 6 hrs for n/v Hydralazine 5 mg IV every 4 hrs systolic pressure > 160 bowel regiment: lactulose 20 gm PO BID PRN constipation Supportive measures: Continue GI and DVT prophylaxis Disposition: Pending improvement in clinical condition All questions answered time spent: > 35 min CASPER WONG MD Aug 29, 2024 09:32
--- NOTE | 2024-08-29 11:17 | NUR ---
PT OFF UNIT FOR PLANNED SX.
[2024-08-29] MEDS ORDERED: BUPIvacaine HCL/EPINEPHrine/PF 0.25% 10ML VIAL IJ ONE (11:37)
[2024-08-29] MEDS: INDOCYANINE GREEN 25 MG VIAL IJ ONE ×2 (12:00→17:31)
[2024-08-29] MEDS ORDERED: dexaMETHasone SOD PHOSPHATE 4 MG/ML 1ML VIAL ONE (12:10)
[2024-08-29] MEDS ORDERED: LIDOCAINE HCL MPF 1% 5ML VIAL ONE (12:10)
[2024-08-29] MEDS ORDERED: NEOSTIGMINE METHYLSULFATE 1MG/ML IV ONE (12:11)
[2024-08-29] MEDS ORDERED: proPOFol 10 MG/ML 20ML VIAL IV ONE (12:11)
[2024-08-29] MEDS ORDERED: GLYCOPYRROLATE 0.2 MG/ML 5 ML VIAL ONE (12:11)
[2024-08-29] MEDS ORDERED: SUCCINYLCHOLINE CHLORIDE 20 MG/ML 10 ML VIAL ONE (12:11)
[2024-08-29] MEDS ORDERED: ondanSETRON 4MG INJ ONE (12:11)
[2024-08-29] MEDS ORDERED: FENTanyl CITRate PF 50 MCG/1 ML 2ML VIAL ONE ×4 (12:12→15:00)
[2024-08-29] MEDS ORDERED: MIDAZOLAM HCL 1 MG/ML 2ML VIAL ONE (12:12)
[2024-08-29] MEDS ORDERED: rocuRONium bROMide 10MG/1ML 5ML VL ONE (12:12)
--- NOTE | 2024-08-29 13:10 | CONS ---
GENERAL SURGERY CONSULTATION NOTE Date/Time Patient Seen: [ 08/29/2024 11:00 AM] Requesting Physician: [Dr. Batista ] Reason for Consultation: [Cholecystitis with cholelithiasis ] History of Present Illness: [ 24-year-old female complaining of right upper quadrant pain that started yesterday and progressively became worse. Patient states she was also having episodes of nausea and vomiting. Patient presented to the ED which workup showed WBCs at 19.1, H and H 10.3 and 32.3, normal LFTs and bilirubin. Abdominal ultrasound done shows cholelithiasis, normal CBD. HIDA scan was done which does show positive for cholecystitis. Patient continues having right upper quadrant tenderness on examination. WBCs today down trended to 12.2. Patient has been NPO since yesterday. No past surgical history and no past medical history. Dr. Padgett will be taking patient to the OR at around noon today.] Past Medical History: [ ] Past Surgical History: [ ] Family History: [ ] Social History: [ ] Habits: [Never] smoker. [Denies] alcohol consumption. [Denies] illicit drug use Current Medications Medications (Trade) Dose Ordered Sig/Trisha Route Start Time Stop Time Status Last Admin Dose Admin Famotidine (Pepcid 20mg Tab) 20 mg DAILY PO 08/28/24 09:00 09/27/24 08:59 08/28/24 10:31 20 MG Lactated Ringer's 1,000 ml @ 100 mls/hr Q10H IV 08/28/24 04:30 09/27/24 04:29 08/29/24 09:01 100 MLS/HR Piperacillin Sod/ Tazobactam Sod (Zosyn 3.375gm+NS 50ml) 3.375 gm Q8H IV 08/28/24 11:00 09/07/24 10:59 08/29/24 11:14 3.375 GM Review of Systems: CONST: [No fever, fatigue, or weight changes.] EYES: [No recent vision problems.] ENT: [No congestion, ear pain, or sore throat.] C/V: [No chest pain, palpitations, or edema.] RESP: [No cough, congestion, wheezing or shortness of breath.] GI: [RUQ abdominal pain, nausea, vomiting.] : [No dysuria.] SKIN: [No rash.] NEURO: [No headache, focal numbness or weakness.] Physical Examination: GENERAL: [No acute distress, female, comfortably resting in bed with mother at bedside.] HEAD: [Normocephalic.] EYES: [Nonicteric.] ENT: [Hearing grossly intact.] NECK: [Supple. There is no tenderness, lymphadenopathy, or masses. No thyromegal.] LUNGS: [Clear breath sounds bilaterally.] HEART: [Normal rate and rhythm.] VASC: [Peripheral pulses +2 bilaterally.] ABD: [RUQ tenderness, Bowel sounds normal, soft.] : [Not examined] EXT: [No edema.] SKIN: [No rashes or lesions noted.] NEURO: [Awake, alert, and oriented x3. No focal sensory or strength deficits noted.] Vital Signs (last 8hr) Date Time Temp Pulse Resp B/P (MAP) Pulse Ox O2 Delivery O2 Flow Rate FiO2 08/29/24 11:29 97.0 80 16 117/70 99 Room Air 08/29/24 07:56 99.7 78 18 105/59 97 Room Air Laboratory: [ ] Hematology Labs: Test 08/29/24 04:55 08/28/24 07:26 08/28/24 01:55 Range/Units White Blood Count 12.2 #H 4.8-10.8 K/uL Red Blood Count 3.80 L 4.00-5.50 MIL/uL Hemoglobin 10.3 L 12.0-16.0 g/dL Hematocrit 32.3 L 36-48 % Mean Corpuscular Volume 85.0 79-99 fL Mean Corpuscular Hemoglobin 27.1 27.0-33.0 pg Mean Corpuscular Hemoglobin Concent 31.9 L 32.0-36.0 g/dL Red Cell Distribution Width 13.8 11.0-15.5 % Platelet Count 356 130-400 K/uL Mean Platelet Volume 9.6 7.5-10.5 fL Immature Granulocyte % (Auto) 0.4 0-1 % Neutrophils (%) (Auto) 63.8 40.0-77.0 % Lymphocytes (%) (Auto) 27.8 21.0-51.0 % Monocytes (%) (Auto) 7.6 3.0-13.0 % Eosinophils (%) (Auto) 0.2 0.0-8.0 % Basophils (%) (Auto) 0.2 0.0-5.0 % Neutrophils # (Auto) 7.8 H 1.8-7.7 K/uL Lymphocytes # (Auto) 3.4 1.0-4.8 K/uL Monocytes # (Auto) 0.9 0.1-1.0 K/uL Eosinophils # (Auto) 0.03 0.00-0.70 K/uL Basophils # (Auto) 0.03 0.00-0.20 K/uL Absolute Immature Granulocyte (auto 0.05 0-1 K/uL Nucleated Red Blood Cells 0.0 0.0-0.19 % Red Blood Cell Morphology See comments White Cell Morphology Comment See comments Chemistry Labs: Test 08/29/24 04:55 08/28/24 07:26 08/28/24 01:55 Range/Units Sodium Level 139 136-145 mmol/L Potassium Level 3.8 3.5-5.1 mmol/L Chloride Level 105 101-111 mmol/L Carbon Dioxide Level 30 21-32 mmol/L Blood Urea Nitrogen 10 7-18 mg/dL Creatinine 0.6 0.5-1.0 mg/dL Glomerular Filtration Rate Calc 130 >90 mL/min Random Glucose 84 70-105 mg/dL Total Calcium 8.5 8.5-10.1 mg/dL Lactic Acid Level 0.9 0.8-2.5 mmol/L Magnesium Level 2.00 1.80-2.40 mg/dL Total Bilirubin 0.4 # 0.2-1.0 mg/dL Aspartate Amino Transf (AST/SGOT) 33 10-37 U/L Alanine Aminotransferase (ALT/SGPT) 47 12-78 U/L Alkaline Phosphatase 89 50-136 U/L Total Protein 7.5 6.0-8.3 g/dL Albumin 3.6 3.5-5.0 g/dL Phosphorus Level 2.6 2.5-4.9 mg/dL Direct Bilirubin 0.1 0.0-0.3 mg/dL Lipase 56 16-77 U/L Procalcitonin < 0.05 L 0.05-0.5 ng/mL Coagulation Labs: Test 08/28/24 01:55 Range/Units Prothrombin Time 11.0 9.6-11.6 SEC Prothromb Time International Ratio 1.04 0.85-1.15 Activated Partial Thromboplast Time 28.0 26.3-35.5 SEC Diagnostics / Radiology: [Copy/Paste Echos/Imaging Report here] Assessment: [Cholecystitis with cholelithiasis ] Plan: [Patient will be going to the OR today at noon with Dr. Padgett for lap cholecystectomy Keep NPO Continue with IV fluids and IV antibiotics Patient and mother were instructed on risks of surgery including bleeding, infection, delayed wound healing, injury to other organs, pulmonary embolus and/or DVT Patient and mother verbalized understanding well and agreed to proceed with scheduled surgery, consent has been signed Surgical team will continue to follow closely Dr. Padgett updated on patient's status ] ATTESTATION BY PHYSICIAN I have seen and examined the patient. I reviewed the documentation, medical decision making, and treatment plan as noted by the mid-level provider above. I agree with the findings and plan of care. MD JANA Veras LETICIA A [employer] Aug 29, 2024 13:10
[2024-08-29] MEDS ORDERED: BUPIvacaine/PF 0.25% 10ML VIAL IJ ONE (13:12)
--- NOTE | 2024-08-29 15:26 | OP ---
Operative Note: DATE OF PROCEDURE: 08/29/24 SURGEON: LANEY BARTLETT MD [employer] PROGRAM ASSISTANT: [facility] [place] staff ANESTHESIA: General ANESTHESIOLOGIST/ANESTHESIOLOGY TEACHER: Enma PREOPERATIVE DIAGNOSIS: Acute cholecystitis POSTOPERATIVE DIAGNOSIS: Acute gangrenous cholecystitis SYNOPSIS: Acute gangrenous cholecystitis and large fatty liver PROCEDURE: Robotic assisted cholecystectomy with ICG green immunofluorescence ESTIMATED BLOOD LOSS: 100 mL INDICATIONS: 24-year-old female patient patient who was admitted with right upper quadrant abdominal pain. Imaging studies confirmed acute cholecystitis. She had a white count of 20.. A robotic cholecystectomy was indicated during this admission. Informed consent was obtained prior to the procedure which included a discussion about the possible risks such as bleeding, infection, bile duct injury, bile leak, and injury to surrounding viscera. DESCRIPTION OF PROCEDURE: Patient was taken to the operating room placed on the operating table in supine position. Next general anesthesia was induced and the patient was intubated. There abdomen was prepped and draped in a sterile fashion. A time-out was called and the patient's identity procedure and preoperative antibiotics were confirmed. I insufflated the abdominal cavity with a Veress needle. Once a pneumoperitoneum was established I entered the abdominal cavity using a 12 mm Optiview port in the left mid abdomen. I placed three additional 8 mm ports across a straight line. The robot was docked to the patient. Pertinent findings: The gallbladder was acutely inflamed with beginning changes of gangrene noted. She has a large fatty liver as well. The gallbladder was retracted in a cephalad direction. I began to carefully dissect out the hepatic cystic triangle. I used ICG green to confirm ductal anatomy. The critical view was established. I identified the cystic artery. This was clipped and divided. The cystic duct was identified. This was clipped and divided. I then cauterized the gallbladder off the liver fossa bed. I checked the liver bed for bleeding. Hemostasis was obtained with electrocautery, Alexi and packing. The gallbladder was placed in a specimen bag and removed from the abdominal cavity. I left a 19 English Russell drain in the right upper quadrant in the gallbladder fossa. I closed the fascia of the 12 mm port with a 1-0 Vicryl suture on a Jeff-Shirley closure device. The pneumoperitoneum was evacuated. Skin incisions were closed with luann. Dressings were applied. Sponge needle instrument counts were accurate. Patient's anesthesia was reversed and they were extubated and taken to recovery room in stable condition. LANEY BARTLETT MD Aug 29, 2024 15:26
[2024-08-29] MEDS: morPHINE 2 MG SYG ONE (15:31)
[2024-08-29] MEDS: FENTanyl CITRate PF 50 MCG/1 ML 2ML VIAL ONE (15:36)
[2024-08-29] MEDS: acetaMINOPHEN 100 ML ONE (17:31)
[2024-08-29] MEDS: SIMETHICONE 80 MG TAB.CHEW PO SCH (17:32)
[2024-08-29] MEDS: traMADol HCL 50 MG TABLET PO PRN (22:21)
[2024-08-30] VITALS (8 sets, daily range): BP systolic 81–143; BP diastolic 49–75; PULSE 58–95; RESP 16–18; TEMP 97.9–98.8; O2SAT 95–96
[2024-08-30 04:28] LABS: HEMATOCRIT 33.1 % (36-48); MEAN CORPUSCULAR HEMOGLOBIN 26.8 pg (27.0-33.0); MEAN CORPUSCULAR HGB CONC 31.1 g/dL (32.0-36.0); RED BLOOD CELL COUNT(AUTO) 3.85 MIL/uL (4.00-5.50); RED CELL DISTRIBUTION WIDTH 13.5 % (11.0-15.5); WHITE BLOOD COUNT (AUTO) 14.5 K/uL (4.8-10.8)
[2024-08-30 04:53] LABS: ALBUMIN 2.9 g/dL (3.5-5.0); BILIRUBIN,TOTAL 0.5 mg/dL (0.2-1.0); CREATININE 0.5 mg/dL (0.5-1.0); POTASSIUM 4.3 mmol/L (3.5-5.1); TOTAL PROTEIN, SERUM 6.4 g/dL (6.0-8.3)
[2024-08-30] MEDS: LIDOCAINE 4% ADH..PATCH TP SCH (08:54)
--- NOTE | 2024-08-30 10:15 | PN ---
[facility] PROGRESS NOTE Date of Service: Aug 30, 2024 Time of Service: 10:13 SUBJECTIVE: Ms. Perez is a 24-year-old female that was seen and examined on 08/28/2024. Patient is a good historian of personal health. Patient's mother Karuna was at bedside Patient reported that she came to the emergency department with a chief complaint of abdominal pain. Location is right upper quadrant. Duration on and off. Character is described as sharp and pressure. There was no alleviating factors. Symptoms aggravated with eating. Patient reported associated vomiting x5 episodes. Patient also reported she was diagnosed with gallstones in February of 2024. In the emergency department WBCs 19, potassium 3.4. Chest x-ray no acute pulmonary infiltrates. Abdominal ultrasound small gallstones in the gallbladder neck region, no ductal dilatation seen, no hydronephrosis seen. Patient admitted for further evaluation and medical management. 08/29 patient admitted to the medical floor, blood pressure 105/59, afebrile, saturating normal on room air, white blood cell count trending down, 12.2, hemoglobin 10.3, hematocrit 32.3, platelet count of 356, sodium 139, potassium 3.8, BUN of 10, creatinine 0.6, total calcium 8.5, liver enzymes with a total bilirubin of 0.4, AST of 33, ALT of 47, alkaline phosphatase of 89. Toxicology screen positive for marijuana. Urine test negative. Patient evaluated by General surgery, HIDA scan requested, nonvisualization of gallbladder activity at 2:00 a.m. suggestive of acute cholecystitis. Patient on Zosyn IV pharmacy to dose. Currently on pain control with morphine 2 mg IV q.4 hours p.r.n. and Toradol 50 mg IV every 6 hours as needed. Counseling provided in terms of marijuana use. During my visit the patient comfortably in bed, alert oriented x3, getting good pain control with current medical management, NPO, scheduled for laparoscopic cholecystectomy today per discussion with the RN. 08/30 patient remains admitted to the medical floor, comfortably in bed, alert oriented x3, getting IV antibiotics, blood pressure 143/59, afebrile, saturating normal on room air, hemoglobin 10.3, hematocrit 33.1, white blood cell count of 14.5, platelet count of 338. Sodium 139, potassium 4.3, BUN of five, creatinine 0.5, magnesium 2.0, liver enzymes mildly elevated. Patient underwent successful robotic assisted cholecystectomy with ICG green immunofluorescence secondary to acute gangrenous cholecystitis. Tolerated the procedure well. Patient remains on Zosyn IV. Currently on full liquid diet, continue to follow surgical input and recommendation. REVIEW OF SYSTEMS CONSTITUTIONAL: Denies fevers, chills, or night sweats. No unintentional weight loss reported. NEUROLOGICAL: Denies headache, amaurosis fugax, motor weakness, sensory deficit, vertigo/spinning sensation, gait abnormalities, or tremors. ENT: No hearing loss, otalgia, otorrhea, rhinitis, rhinorrhea, hoarseness, or sore throat. CARDIOVASCULAR: Denies any exertional angina, dyspnea on exertion, orthopnea, paroxysmal nocturnal dyspnea, palpitations, life-threatening arrhythmias, claudication. PULMONARY: Denies any shortness of breath, cough, phlegm/sputum, hemoptysis, pleuritic chest pain. SLEEP: Denies morning headaches, daytime somnolence or napping. Denies difficulty falling asleep, staying asleep, waking from sleep. Denies knowledge of snoring. GASTROINTESTINAL: Denies any type of dysphagia to either liquids or solids. Denies nausea, vomiting, pyrosis, early satiety, abdominal pain, diarrhea, constipation, or changes in stool consistency or caliber. Denies coffee-ground emesis, hematemesis, hematochezia, or melanotic stools. GENITOURINARY: Denies frequency, urgency, nocturia, hematuria or incontinence (Storage/Irritative symptoms.) Low urinary stream, straining to void, urinary intermittency or hesitancy, splitting of the voiding stream, terminal dribbling. ENDOCRINOLOGIC: Denies polyuria, polydipsia, polyphagia or heat/cold intolerances. HEMATOLOGIC: Denies thrombophilia/previous clots, or coagulopathy/bleeding disorders. ONCOLOGIC: Denies personal history of malignancy. DERMATOLOGIC: Denies rashes or pruritus. PSYCHIATRIC: Denies any suicidal or homicidal ideation. Denies hallucinations. PHYSICAL EXAM GENERAL APPEARANCE: The patient is awake, alert, and oriented, in no acute cardiopulmonary distress. NEUROLOGICAL: Cranial nerves II-XII grossly intact. Motor is 5/5 in bilateral upper and lower extremities proximal to distal. No sensory deficits. HEENT: Face is symmetric. Pupils are equal and reactive. Extraocular movements are intact. NECK: Supple. No JVD. No thyromegaly. No submental, submandibular, pre- /postauricular, occipital or supraclavicular lymphadenopathy. CHEST: Normal chest expansion. No Telemetry. LUNGS: Absence of any rales, rhonchi or any wheezing. CARDIOVASCULAR: Regular. S1 and S2 normal. No appreciable rubs, murmurs or gallops. ABDOMEN: Soft, nontender, and nondistended. There is no rebound, voluntary guarding, or rigidity. : Deferred. No Hines. EXTREMITIES: Non-edematous and not cyanotic. No clubbing. Good capillary refill. SKIN: No skin breakdown. Vital Signs (last 8hr) Date Time Temp Pulse Resp B/P (MAP) Pulse Ox O2 Delivery O2 Flow Rate FiO2 08/30/24 08:17 98.2 68 18 143/59 96 Room Air 08/30/24 04:00 97.9 58 16 99/56 100 Nasal Cannula 1.0 LABS: Laboratory: Test 08/30/24 03:51 08/29/24 04:55 Range/Units White Blood Count 14.5 H 4.8-10.8 K/uL Red Blood Count 3.85 L 4.00-5.50 MIL/uL Hemoglobin 10.3 L 12.0-16.0 g/dL Hematocrit 33.1 L 36-48 % Mean Corpuscular Volume 86.0 79-99 fL Mean Corpuscular Hemoglobin 26.8 L 27.0-33.0 pg Mean Corpuscular Hemoglobin Concent 31.1 L 32.0-36.0 g/dL Red Cell Distribution Width 13.5 11.0-15.5 % Platelet Count 338 130-400 K/uL Mean Platelet Volume 9.8 7.5-10.5 fL Nucleated Red Blood Cells 0.0 0.0-0.19 % Sodium Level 139 136-145 mmol/L Potassium Level 4.3 3.5-5.1 mmol/L Chloride Level 104 101-111 mmol/L Carbon Dioxide Level 31 21-32 mmol/L Blood Urea Nitrogen 5 L 7-18 mg/dL Creatinine 0.5 0.5-1.0 mg/dL Glomerular Filtration Rate Calc 136 >90 mL/min Random Glucose 108 H 70-105 mg/dL Total Calcium 8.9 8.5-10.1 mg/dL Magnesium Level 2.00 1.80-2.40 mg/dL Total Bilirubin 0.5 0.2-1.0 mg/dL Aspartate Amino Transf (AST/SGOT) 80 H 10-37 U/L Alanine Aminotransferase (ALT/SGPT) 90 H 12-78 U/L Alkaline Phosphatase 86 50-136 U/L Total Protein 6.4 6.0-8.3 g/dL Albumin 2.9 L 3.5-5.0 g/dL Immature Granulocyte % (Auto) 0.4 0-1 % Neutrophils (%) (Auto) 63.8 40.0-77.0 % Lymphocytes (%) (Auto) 27.8 21.0-51.0 % Monocytes (%) (Auto) 7.6 3.0-13.0 % Eosinophils (%) (Auto) 0.2 0.0-8.0 % Basophils (%) (Auto) 0.2 0.0-5.0 % Neutrophils # (Auto) 7.8 H 1.8-7.7 K/uL Lymphocytes # (Auto) 3.4 1.0-4.8 K/uL Monocytes # (Auto) 0.9 0.1-1.0 K/uL Eosinophils # (Auto) 0.03 0.00-0.70 K/uL Basophils # (Auto) 0.03 0.00-0.20 K/uL Absolute Immature Granulocyte (auto 0.05 0-1 K/uL Current Medications Medications (Trade) Dose Ordered Sig/Trisha Route PRN Reason Start Time Stop Time Status Last Admin Dose Admin Acetaminophen (TYLenol 325MG TAB) 650 mg Q6H PRN PO TEMPERATURE GREATER THAN 101.5 08/28/24 04:30 09/27/24 04:29 08/28/24 10:31 650 MG Famotidine (Pepcid 20mg Tab) 20 mg DAILY PO 08/28/24 09:00 09/27/24 08:59 08/30/24 08:54 20 MG Hydralazine HCl (APRESOLine 20MG INJ) 10 mg Q6H PRN IV For:SBP above 160;DBP above 90 08/28/24 04:30 09/27/24 04:29 Ketorolac Tromethamine (toRADol) 15 mg Q6H PRN IV MODERATE PAIN (4-6) 08/28/24 12:30 08/29/24 15:32 DC 08/28/24 20:37 15 MG Lactated Ringer's 1,000 ml @ 100 mls/hr Q10H IV 08/28/24 04:30 09/27/24 04:29 08/30/24 03:08 100 MLS/HR Lidocaine (Lidocaine Patch 4%) 1 each DAILY TP 08/30/24 09:00 09/29/24 08:59 08/30/24 08:54 1 EACH Magnesium Sulfate 50 ml @ 0 mls/hr PROTOCOL PRN IV h 08/28/24 04:30 09/27/24 04:29 Morphine Sulfate (morPHINE 2MG SYG) 2 mg Q4H PRN IVP SEVERE PAIN (7-10) 08/28/24 04:30 09/04/24 04:29 08/30/24 06:05 2 MG Ondansetron HCl (zoFRAN 4MG INJ) 4 mg Q6H PRN IV NAUSEA/VOMITING 08/28/24 04:30 09/27/24 04:29 Piperacillin Sod/ Tazobactam Sod (Zosyn 3.375gm+NS 50ml) 3.375 gm Q8H IV 08/28/24 11:00 09/07/24 10:59 08/30/24 03:04 3.375 GM Potassium Chloride 100 ml @ 50 mls/hr AD PRN IV POTASSIUM PROTOCOL 08/28/24 04:30 09/27/24 04:29 08/28/24 04:27 50 MLS/HR Simethicone (Mylicon) 80 mg QID PO 08/29/24 17:00 09/28/24 16:59 08/30/24 08:54 80 MG Tramadol HCl (UltRAM) 50 mg Q4H PRN PO MODERATE PAIN (4-6) 08/29/24 15:30 09/03/24 15:29 08/30/24 03:32 50 MG DIAGNOSTICS / RADIOLOGY: [ ] ASSESSMENT: Sepsis, POA Acute cholecystitis, POA Fatty liver infiltration Status post Robotic assisted cholecystectomy with ICG green immunofluorescence 08/29/2024 Leukocytosis, POA Hypokalemia, POA Nausea, POA Vomiting, POA Toxicology screen positive for marijuana PLAN: patient remains admitted to the medical floor, blood pressure 143/59, afebrile, saturating normal on room air, hemoglobin 10.3, hematocrit 33.1, white blood cell count of 14.5, platelet count of 338. Sodium 139, potassium 4.3, BUN of five, creatinine 0.5, magnesium 2.0, liver enzymes mildly elevated. Patient underwent successful robotic assisted cholecystectomy with ICG green immunofluorescence secondary to acute gangrenous cholecystitis. Tolerated the procedure well. Patient remains on Zosyn IV. Currently on full liquid diet, continue to follow surgical input and recommendation. NEURO: Minimize central acting medications as possible. Fall Precautions. Well lighted room through the day and minimize interruptions through the night to prevent acute delirium. PULMONARY: Supplemental 02 as needed BiPAP as necessary, for respiratory distress Titrate Fio2 to keep Spo2 > or = 90% DuoNebs and CPT as needed IS hourly while awake for pulmonary hygiene prn Out of bed to chair as tolerated Maintain aspiration precautions at all times CARDIOVASCULAR: Follow hemodynamics. Vital signs per facility protocol GI & NUTRITION: Continue nutritional support Aspirations precautions Prokinetic agents and laxatives as needed KIDNEYS & ELECTROLYTES: Strict monitoring of intake and output Daily weights Avoid nephrotoxic agents Monitor electrolytes and replace as needed Goal urine output of 30mL/hr or 0.5mL/kg/hr Medications to be dosed according to renal function. Avoid contrast if possible ENDOCRINE: Maintain blood glucose between 100-180 at all times. Insulin sliding scale for blood glucose management Hypoglycemia and hyperglycemia protocol in place INFECTIOUS DISEASE: Trend temperature, WBC and procalcitonin level Follow cultures, deescalate antibiotics as soon as possible. Panculture if new onset fever HEMATOLOGY & COAGULATION: Monitor H&H. Keep Hgb > 7 Transfuse 1 unit of PRBC for Hgb < 7 Transfuse 1 pack of platelets of platelets < 20, 000 Watch for any signs and symptoms of bleeding SKIN: Pressure ulcer prevention per facility protocol Specialty mattress as needed ORTHO/REHAB Continue PT/OT PRN: MEDICATIONS Tylenol 650 mg po every 4 hrs for fever zofran 4 mg IV every 6 hrs for n/v Hydralazine 5 mg IV every 4 hrs systolic pressure > 160 bowel regiment: lactulose 20 gm PO BID PRN constipation Supportive measures: Continue GI and DVT prophylaxis Disposition: Pending improvement in clinical condition All questions answered time spent: > 35 min CASPER WONG MD Aug 30, 2024 10:15
--- NOTE | 2024-08-30 16:20 | PN ---
GENERAL SURGERY PROGRESS NOTE Date/Time Patient Seen: [08/30/2024 ] Problem List: [24-year-old female with Cholecystitis with cholelithiasis ] Interval History: [24-year-old female, postop day 1., robotic assisted cholecystectomy with ICG by Dr. Padgett Gallbladder was gangrenous, so patient will need at least 48 hours of IV antibiotics DEMAR with serosanguineous output, about 90 cc in 24 hours Patient has been tolerating soft diet without any complaints of nausea or vomiting Abdomen is soft, with expected tenderness over surgical incisions, dressings are dry and intact Patient has been doing her incentive spirometer exercises and ambulating Patient states she has not been passing any gas yet WBCs slightly increased to 14.5, which is expected postoperatively H&H 10.3 and 33.1 Bilirubin 0.5 Repeat labs in a.m. Patient encouraged to continue ambulating Continue with IV fluids and IV antibiotics Surgical team will continue to follow closely Dr. Padgett updated on patient's status ] Current Medications Medications (Trade) Dose Ordered Sig/Trisha Route Start Time Stop Time Status Last Admin Dose Admin Famotidine (Pepcid 20mg Tab) 20 mg DAILY PO 08/28/24 09:00 09/27/24 08:59 08/30/24 08:54 20 MG Lactated Ringer's 1,000 ml @ 100 mls/hr Q10H IV 08/28/24 04:30 09/27/24 04:29 08/30/24 03:08 100 MLS/HR Lidocaine (Lidocaine Patch 4%) 1 each DAILY TP 08/30/24 09:00 09/29/24 08:59 08/30/24 08:54 1 EACH Piperacillin Sod/ Tazobactam Sod (Zosyn 3.375gm+NS 50ml) 3.375 gm Q8H IV 08/28/24 11:00 09/07/24 10:59 08/30/24 12:14 3.375 GM Simethicone (Mylicon) 80 mg QID PO 08/29/24 17:00 09/28/24 16:59 08/30/24 12:14 80 MG Physical Examination: GENERAL: [No acute distress, female, comfortably sitting up in bed doing her incentive spirometer exercises.] HEAD: [Normocephalic.] EYES: [Nonicteric sclera bilaterally.] ENT: [Hearing grossly intact.] NECK: [Supple.] LUNGS: [Clear breath sounds bilaterally.] HEART: [Normal rate and rhythm.] VASC: [Peripheral pulses +2 bilaterally.] ABD: [Bowel sounds normal, soft, surgical incisions with dressings dry and intact.] : [Not examined] EXT: [No edema.] SKIN: [No lesions noted.] NEURO: [Awake, alert, and oriented x3. No focal sensory or strength deficits noted.] Vital Signs (last 8hr) Date Time Temp Pulse Resp B/P (MAP) Pulse Ox O2 Delivery O2 Flow Rate FiO2 08/30/24 16:02 98.8 73 18 108/63 96 Room Air 08/30/24 11:43 98.1 76 18 109/75 96 Room Air 08/30/24 08:17 98.2 68 18 143/59 96 Room Air Laboratory: [ ] Hematology Labs: Test 08/30/24 03:51 08/29/24 04:55 Range/Units White Blood Count 14.5 H 4.8-10.8 K/uL Red Blood Count 3.85 L 4.00-5.50 MIL/uL Hemoglobin 10.3 L 12.0-16.0 g/dL Hematocrit 33.1 L 36-48 % Mean Corpuscular Volume 86.0 79-99 fL Mean Corpuscular Hemoglobin 26.8 L 27.0-33.0 pg Mean Corpuscular Hemoglobin Concent 31.1 L 32.0-36.0 g/dL Red Cell Distribution Width 13.5 11.0-15.5 % Platelet Count 338 130-400 K/uL Mean Platelet Volume 9.8 7.5-10.5 fL Nucleated Red Blood Cells 0.0 0.0-0.19 % Immature Granulocyte % (Auto) 0.4 0-1 % Neutrophils (%) (Auto) 63.8 40.0-77.0 % Lymphocytes (%) (Auto) 27.8 21.0-51.0 % Monocytes (%) (Auto) 7.6 3.0-13.0 % Eosinophils (%) (Auto) 0.2 0.0-8.0 % Basophils (%) (Auto) 0.2 0.0-5.0 % Neutrophils # (Auto) 7.8 H 1.8-7.7 K/uL Lymphocytes # (Auto) 3.4 1.0-4.8 K/uL Monocytes # (Auto) 0.9 0.1-1.0 K/uL Eosinophils # (Auto) 0.03 0.00-0.70 K/uL Basophils # (Auto) 0.03 0.00-0.20 K/uL Absolute Immature Granulocyte (auto 0.05 0-1 K/uL Chemistry Labs: Test 08/30/24 03:51 Range/Units Sodium Level 139 136-145 mmol/L Potassium Level 4.3 3.5-5.1 mmol/L Chloride Level 104 101-111 mmol/L Carbon Dioxide Level 31 21-32 mmol/L Blood Urea Nitrogen 5 L 7-18 mg/dL Creatinine 0.5 0.5-1.0 mg/dL Glomerular Filtration Rate Calc 136 >90 mL/min Random Glucose 108 H 70-105 mg/dL Total Calcium 8.9 8.5-10.1 mg/dL Magnesium Level 2.00 1.80-2.40 mg/dL Total Bilirubin 0.5 0.2-1.0 mg/dL Aspartate Amino Transf (AST/SGOT) 80 H 10-37 U/L Alanine Aminotransferase (ALT/SGPT) 90 H 12-78 U/L Alkaline Phosphatase 86 50-136 U/L Total Protein 6.4 6.0-8.3 g/dL Albumin 2.9 L 3.5-5.0 g/dL Diagnostics / Radiology: [Copy/Paste Echos/Imaging Report here] Impression and Plan: [ ] ATTESTATION BY PHYSICIAN I have seen and examined the patient. I reviewed the documentation, medical decision making, and treatment plan as noted by the mid-level provider above. I agree with the findings and plan of care. MD JANA Veras LETICIA A POWDER NIPPER Aug 30, 2024 16:20
[2024-08-30] MEDS: BisaCODYL 10 MG SUPP.RECT RC ONE (22:34)
[2024-08-30] MEDS: morPHINE 2 MG SYG IVP ONE (22:36)
[2024-08-31] VITALS (7 sets, daily range): BP systolic 94–105; BP diastolic 54–67; PULSE 61–78; RESP 17–20; TEMP 97.8–98.4; O2SAT 96–97
[2024-08-31 04:33] LABS: HEMATOCRIT 31.3 % (36-48); MEAN CORPUSCULAR HEMOGLOBIN 26.9 pg (27.0-33.0); MEAN CORPUSCULAR VOLUME 86.7 fL (79-99); RED BLOOD CELL COUNT(AUTO) 3.61 MIL/uL (4.00-5.50); RED CELL DISTRIBUTION WIDTH 13.7 % (11.0-15.5); WHITE BLOOD COUNT (AUTO) 12.1 K/uL (4.8-10.8)
[2024-08-31 04:52] LABS: ALBUMIN 2.8 g/dL (3.5-5.0); BILIRUBIN,TOTAL 0.3 mg/dL (0.2-1.0); CREATININE 0.6 mg/dL (0.5-1.0); POTASSIUM 3.7 mmol/L (3.5-5.1); TOTAL PROTEIN, SERUM 6.2 g/dL (6.0-8.3)
--- NOTE | 2024-08-31 09:50 | PN ---
[facility] PROGRESS NOTE Date of Service: Aug 31, 2024 Time of Service: 09:48 SUBJECTIVE: Ms. Perez is a 24-year-old female that was seen and examined on 08/28/2024. Patient is a good historian of personal health. Patient's mother Karuna was at bedside Patient reported that she came to the emergency department with a chief complaint of abdominal pain. Location is right upper quadrant. Duration on and off. Character is described as sharp and pressure. There was no alleviating factors. Symptoms aggravated with eating. Patient reported associated vomiting x5 episodes. Patient also reported she was diagnosed with gallstones in February of 2024. In the emergency department WBCs 19, potassium 3.4. Chest x-ray no acute pulmonary infiltrates. Abdominal ultrasound small gallstones in the gallbladder neck region, no ductal dilatation seen, no hydronephrosis seen. Patient admitted for further evaluation and medical management. 08/29 patient admitted to the medical floor, blood pressure 105/59, afebrile, saturating normal on room air, white blood cell count trending down, 12.2, hemoglobin 10.3, hematocrit 32.3, platelet count of 356, sodium 139, potassium 3.8, BUN of 10, creatinine 0.6, total calcium 8.5, liver enzymes with a total bilirubin of 0.4, AST of 33, ALT of 47, alkaline phosphatase of 89. Toxicology screen positive for marijuana. Urine test negative. Patient evaluated by General surgery, HIDA scan requested, nonvisualization of gallbladder activity at 2:00 a.m. suggestive of acute cholecystitis. Patient on Zosyn IV pharmacy to dose. Currently on pain control with morphine 2 mg IV q.4 hours p.r.n. and Toradol 50 mg IV every 6 hours as needed. Counseling provided in terms of marijuana use. During my visit the patient comfortably in bed, alert oriented x3, getting good pain control with current medical management, NPO, scheduled for laparoscopic cholecystectomy today per discussion with the RN. 08/30 patient remains admitted to the medical floor, comfortably in bed, alert oriented x3, getting IV antibiotics, blood pressure 143/59, afebrile, saturating normal on room air, hemoglobin 10.3, hematocrit 33.1, white blood cell count of 14.5, platelet count of 338. Sodium 139, potassium 4.3, BUN of five, creatinine 0.5, magnesium 2.0, liver enzymes mildly elevated. Patient underwent successful robotic assisted cholecystectomy with ICG green immunofluorescence secondary to acute gangrenous cholecystitis. Tolerated the procedure well. Patient remains on Zosyn IV. Currently on full liquid diet, continue to follow surgical input and recommendation. 08/31 patient remains admitted to the medical floor, blood pressure 104/67, afebrile, saturating normal on room air, WBC slowly trending down, today 12.1, hemoglobin 9.7, hematocrit 31.3, platelet count of 339. Sodium 139 potassium 3.7 BUN of seven, creatinine 0.6, magnesium 2.0. Patient remains on Zosyn IV. Continue to monitor WBC in a.m., continue current pain medication with the adjustment as needed, continue to follow surgical input and recommendation. Patient currently on GI soft diet. Patient tolerating diet well, no nausea. Feels mild abdominal discomfort, she is passing gas, but no good bowel movement for the last four days, received laxative earlier this morning, started to pass very small amount of stool, we will give lactulose. REVIEW OF SYSTEMS CONSTITUTIONAL: Denies fevers, chills, or night sweats. No unintentional weight loss reported. NEUROLOGICAL: Denies headache, amaurosis fugax, motor weakness, sensory deficit, vertigo/spinning sensation, gait abnormalities, or tremors. ENT: No hearing loss, otalgia, otorrhea, rhinitis, rhinorrhea, hoarseness, or sore throat. CARDIOVASCULAR: Denies any exertional angina, dyspnea on exertion, orthopnea, paroxysmal nocturnal dyspnea, palpitations, life-threatening arrhythmias, claudication. PULMONARY: Denies any shortness of breath, cough, phlegm/sputum, hemoptysis, pleuritic chest pain. SLEEP: Denies morning headaches, daytime somnolence or napping. Denies difficulty falling asleep, staying asleep, waking from sleep. Denies knowledge of snoring. GASTROINTESTINAL: Denies any type of dysphagia to either liquids or solids. Denies nausea, vomiting, pyrosis, early satiety, abdominal pain, diarrhea, constipation, or changes in stool consistency or caliber. Denies coffee-ground emesis, hematemesis, hematochezia, or melanotic stools. GENITOURINARY: Denies frequency, urgency, nocturia, hematuria or incontinence (Storage/Irritative symptoms.) Low urinary stream, straining to void, urinary intermittency or hesitancy, splitting of the voiding stream, terminal dribbling. ENDOCRINOLOGIC: Denies polyuria, polydipsia, polyphagia or heat/cold intolerances. HEMATOLOGIC: Denies thrombophilia/previous clots, or coagulopathy/bleeding disorders. ONCOLOGIC: Denies personal history of malignancy. DERMATOLOGIC: Denies rashes or pruritus. PSYCHIATRIC: Denies any suicidal or homicidal ideation. Denies hallucinations. PHYSICAL EXAM GENERAL APPEARANCE: The patient is awake, alert, and oriented, in no acute cardiopulmonary distress. NEUROLOGICAL: Cranial nerves II-XII grossly intact. Motor is 5/5 in bilateral upper and lower extremities proximal to distal. No sensory deficits. HEENT: Face is symmetric. Pupils are equal and reactive. Extraocular movements are intact. NECK: Supple. No JVD. No thyromegaly. No submental, submandibular, pre- /postauricular, occipital or supraclavicular lymphadenopathy. CHEST: Normal chest expansion. No Telemetry. LUNGS: Absence of any rales, rhonchi or any wheezing. CARDIOVASCULAR: Regular. S1 and S2 normal. No appreciable rubs, murmurs or gallops. ABDOMEN: Soft, nontender, and nondistended. There is no rebound, voluntary guarding, or rigidity. : Deferred. No Hines. EXTREMITIES: Non-edematous and not cyanotic. No clubbing. Good capillary refill. SKIN: No skin breakdown. Vital Signs (last 8hr) Date Time Temp Pulse Resp B/P (MAP) Pulse Ox O2 Delivery O2 Flow Rate FiO2 08/31/24 08:00 98.4 67 18 104/67 96 Room Air 08/31/24 04:02 97.9 69 18 94/54 98 Nasal Cannula 1.0 LABS: Laboratory: Test 08/31/24 04:13 Range/Units White Blood Count 12.1 H 4.8-10.8 K/uL Red Blood Count 3.61 L 4.00-5.50 MIL/uL Hemoglobin 9.7 L 12.0-16.0 g/dL Hematocrit 31.3 L 36-48 % Mean Corpuscular Volume 86.7 79-99 fL Mean Corpuscular Hemoglobin 26.9 L 27.0-33.0 pg Mean Corpuscular Hemoglobin Concent 31.0 L 32.0-36.0 g/dL Red Cell Distribution Width 13.7 11.0-15.5 % Platelet Count 339 130-400 K/uL Mean Platelet Volume 9.6 7.5-10.5 fL Nucleated Red Blood Cells 0.0 0.0-0.19 % Sodium Level 139 136-145 mmol/L Potassium Level 3.7 3.5-5.1 mmol/L Chloride Level 103 101-111 mmol/L Carbon Dioxide Level 36 H 21-32 mmol/L Blood Urea Nitrogen 7 7-18 mg/dL Creatinine 0.6 0.5-1.0 mg/dL Glomerular Filtration Rate Calc 130 >90 mL/min Random Glucose 104 70-105 mg/dL Total Calcium 8.7 8.5-10.1 mg/dL Magnesium Level 2.00 1.80-2.40 mg/dL Total Bilirubin 0.3 0.2-1.0 mg/dL Aspartate Amino Transf (AST/SGOT) 50 H 10-37 U/L Alanine Aminotransferase (ALT/SGPT) 81 H 12-78 U/L Alkaline Phosphatase 76 50-136 U/L Total Protein 6.2 6.0-8.3 g/dL Albumin 2.8 L 3.5-5.0 g/dL Current Medications Medications (Trade) Dose Ordered Sig/Trisha Route PRN Reason Start Time Stop Time Status Last Admin Dose Admin Acetaminophen (TYLenol 325MG TAB) 650 mg Q6H PRN PO TEMPERATURE GREATER THAN 101.5 08/28/24 04:30 09/27/24 04:29 08/28/24 10:31 650 MG Famotidine (Pepcid 20mg Tab) 20 mg DAILY PO 08/28/24 09:00 09/27/24 08:59 08/31/24 08:25 20 MG Hydralazine HCl (APRESOLine 20MG INJ) 10 mg Q6H PRN IV For:SBP above 160;DBP above 90 08/28/24 04:30 09/27/24 04:29 Ketorolac Tromethamine (toRADol) 15 mg Q6H PRN IV MODERATE PAIN (4-6) 08/28/24 12:30 08/29/24 15:32 DC 08/28/24 20:37 15 MG Lactated Ringer's 1,000 ml @ 100 mls/hr Q10H IV 08/28/24 04:30 09/27/24 04:29 08/30/24 17:37 100 MLS/HR Lidocaine (Lidocaine Patch 4%) 1 each DAILY TP 08/30/24 09:00 09/29/24 08:59 08/31/24 08:25 1 EACH Magnesium Sulfate 50 ml @ 0 mls/hr PROTOCOL PRN IV h 08/28/24 04:30 09/27/24 04:29 Morphine Sulfate (morPHINE 2MG SYG) 2 mg Q4H PRN IVP SEVERE PAIN (7-10) 08/28/24 04:30 09/04/24 04:29 08/31/24 05:16 2 MG Ondansetron HCl (zoFRAN 4MG INJ) 4 mg Q6H PRN IV NAUSEA/VOMITING 08/28/24 04:30 09/27/24 04:29 Piperacillin Sod/ Tazobactam Sod (Zosyn 3.375gm+NS 50ml) 3.375 gm Q8H IV 08/28/24 11:00 09/07/24 10:59 08/31/24 02:42 3.375 GM Potassium Chloride 100 ml @ 50 mls/hr AD PRN IV POTASSIUM PROTOCOL 08/28/24 04:30 09/27/24 04:29 08/28/24 04:27 50 MLS/HR Simethicone (Mylicon) 80 mg QID PO 08/29/24 17:00 09/28/24 16:59 08/31/24 08:25 80 MG Tramadol HCl (UltRAM) 50 mg Q4H PRN PO MODERATE PAIN (4-6) 08/29/24 15:30 09/03/24 15:29 08/31/24 06:40 50 MG DIAGNOSTICS / RADIOLOGY: [ ] ASSESSMENT: Sepsis, POA Acute gangrenous cholecystitis, POA Fatty liver infiltration Status post Robotic assisted cholecystectomy with ICG green immunofluorescence 08/29/2024 Leukocytosis, POA Hypokalemia, POA Nausea, POA Vomiting, POA Toxicology screen positive for marijuana PLAN: patient remains admitted to the medical floor, blood pressure 104/67, afebrile, saturating normal on room air, WBC slowly trending down, today 12.1, hemoglobin 9.7, hematocrit 31.3, platelet count of 339. Sodium 139 potassium 3.7 BUN of seven, creatinine 0.6, magnesium 2.0. Patient remains on Zosyn IV. Continue to monitor WBC in a.m., continue current pain medication with the adjustment as needed, continue to follow surgical input and recommendation. Patient currently on GI soft diet. NEURO: Minimize central acting medications as possible. Fall Precautions. Well lighted room through the day and minimize interruptions through the night to prevent acute delirium. PULMONARY: Supplemental 02 as needed BiPAP as necessary, for respiratory distress Titrate Fio2 to keep Spo2 > or = 90% DuoNebs and CPT as needed IS hourly while awake for pulmonary hygiene prn Out of bed to chair as tolerated Maintain aspiration precautions at all times CARDIOVASCULAR: Follow hemodynamics. Vital signs per facility protocol GI & NUTRITION: Continue nutritional support Aspirations precautions Prokinetic agents and laxatives as needed KIDNEYS & ELECTROLYTES: Strict monitoring of intake and output Daily weights Avoid nephrotoxic agents Monitor electrolytes and replace as needed Goal urine output of 30mL/hr or 0.5mL/kg/hr Medications to be dosed according to renal function. Avoid contrast if possible ENDOCRINE: Maintain blood glucose between 100-180 at all times. Insulin sliding scale for blood glucose management Hypoglycemia and hyperglycemia protocol in place INFECTIOUS DISEASE: Trend temperature, WBC and procalcitonin level Follow cultures, deescalate antibiotics as soon as possible. Panculture if new onset fever HEMATOLOGY & COAGULATION: Monitor H&H. Keep Hgb > 7 Transfuse 1 unit of PRBC for Hgb < 7 Transfuse 1 pack of platelets of platelets < 20, 000 Watch for any signs and symptoms of bleeding SKIN: Pressure ulcer prevention per facility protocol Specialty mattress as needed ORTHO/REHAB Continue PT/OT PRN: MEDICATIONS Tylenol 650 mg po every 4 hrs for fever zofran 4 mg IV every 6 hrs for n/v Hydralazine 5 mg IV every 4 hrs systolic pressure > 160 bowel regiment: lactulose 20 gm PO BID PRN constipation Supportive measures: Continue GI and DVT prophylaxis Disposition: Pending improvement in clinical condition All questions answered time spent: > 35 min CASPER WONG MD Aug 31, 2024 09:50
--- NOTE | 2024-08-31 11:55 | NUR ---
DEMAR DRAIN DEMAR DRESSING CHANGED. REFUSED FOR INCISION DRESSING TO BE CHANGED AT THIS TIME. REFUSED ABDOMINAL BINDER AT THIS TIME.
[2024-08-31] MEDS: ondanSETRON 4MG INJ IV PRN (12:29)
[2024-08-31] MEDS: LACTULOSE 20 GM/30 ML UDCUP PO ONE (13:50)
[2024-08-31] MEDS ORDERED: PoTASSium chloRIDE 20MEQ/100ML 100 ML IV PRN (14:00)
[2024-08-31] MEDS: PoTASSium chl 10% ELIXIR 20MEQ 20 MEQ/15 ML UDCUP PO PRN (14:05)
--- NOTE | 2024-08-31 16:56 | PN ---
This is a 24-year-old female postop day two for laparoscopic cholecystectomy with gangrenous cholecystitis Interval history This 24-year-old female seen in her room resting White count still slightly elevated Patient reporting continued abdominal discomfort likely from postoperative gas LFTs trending down From surgical standpoint patient could benefit from one more day of IV antibiotics before consideration for discharge Patient encouraged to ambulate Dr. Padgett to be updated in patient's status and likely discharge for tomorrow with p.o. antibiotics Nursing report any further acute events Vitals/Labs Vital Signs Date Time Temp Pulse Resp B/P (MAP) Pulse Ox O2 Delivery O2 Flow Rate FiO2 08/31/24 16:00 98.1 61 18 102/61 96 Room Air 08/31/24 04:02 1.0 08/30/24 20:00 21 Laboratory Tests 08/31/24 04:13 Medications Current Medications Sodium Chloride 1,000 ml @ 0 mls/hr ONCE ONCE IV Last administered on 08/28/24at 02:03; Start 08/28/24 at 02:00; Stop 08/28/24 at 02:01; Status DC Ondansetron HCl 4 mg ONCE ONCE IVP Last administered on 08/28/24at 02:04; Start 08/28/24 at 02:00; Stop 08/28/24 at 02:01; Status DC Hydromorphone HCl 0.5 mg ONCE ONCE IVP Last administered on 08/28/24at 02:04; Start 08/28/24 at 02:00; Stop 08/28/24 at 02:01; Status DC Hydromorphone HCl 0.5 mg ONCE ONCE IVP Last administered on 08/28/24at 03:16; Start 08/28/24 at 03:00; Stop 08/28/24 at 03:01; Status DC Piperacillin Sod/ Tazobactam Sod 3.375 gm ONCE ONCE IV Last administered on 08/28/24at 03:16; Start 08/28/24 at 03:30; Stop 08/28/24 at 03:31; Status DC Pantoprazole Sodium 40 mg ONCE ONCE IVP Last administered on 08/28/24at 03:44; Start 08/28/24 at 03:30; Stop 08/28/24 at 03:31; Status DC Acetaminophen 650 mg Q6H PRN PO Last administered on 08/28/24at 10:31; Start 08/28/24 at 04:30; Stop 09/27/24 at 04:29 Famotidine 20 mg DAILY PO Last administered on 08/31/24at 08:25; Start 08/28/24 at 09:00; Stop 09/27/24 at 08:59 Ondansetron HCl 4 mg Q6H PRN IV Last administered on 08/31/24at 12:29; Start 08/28/24 at 04:30; Stop 09/27/24 at 04:29 Morphine Sulfate 2 mg Q4H PRN IVP Last administered on 08/31/24at 05:16; Start 08/28/24 at 04:30; Stop 09/04/24 at 04:29 Hydralazine HCl 10 mg Q6H PRN IV; Start 08/28/24 at 04:30; Stop 09/27/24 at 04:29 Lactated Ringer's 1,000 ml @ 100 mls/hr Q10H IV Last administered on 08/30/24at 17:37; Start 08/28/24 at 04:30; Stop 09/27/24 at 04:29 Potassium Chloride 100 ml @ 50 mls/hr AD PRN IV Last administered on 08/28/24at 04:27; Start 08/28/24 at 04:30; Stop 08/31/24 at 13:59; Status DC Magnesium Sulfate 50 ml @ 0 mls/hr PROTOCOL PRN IV; Start 08/28/24 at 04:30; Stop 09/27/24 at 04:29 Piperacillin Sod/ Tazobactam Sod 3.375 gm Q8H IV Last administered on 08/31/24at 10:21; Start 08/28/24 at 11:00; Stop 09/07/24 at 10:59 Ketorolac Tromethamine 15 mg Q6H PRN IV Last administered on 08/28/24at 20:37; Start 08/28/24 at 12:30; Stop 08/29/24 at 15:32; Status DC Bupivacaine HCl/ Epinephrine Bitart 10 ml STK-MED ONCE IJ; Start 08/29/24 at 11:37; Stop 08/29/24 at 11:37; Status DC Indocyanine Green 25 mg STK-MED ONCE IJ; Start 08/29/24 at 11:37; Stop 08/29/24 at 11:38; Status DC Lidocaine HCl 5 ml STK-MED ONCE .ROUTE; Start 08/29/24 at 12:10; Stop 08/29/24 at 12:10; Status DC Dexamethasone Sodium Phosphate 4 mg STK-MED ONCE .ROUTE; Start 08/29/24 at 12:10; Stop 08/29/24 at 12:10; Status DC Glycopyrrolate 1 mg STK-MED ONCE .ROUTE; Start 08/29/24 at 12:11; Stop 08/29/24 at 12:11; Status DC Ondansetron HCl 4 mg STK-MED ONCE .ROUTE; Start 08/29/24 at 12:11; Stop 08/29/24 at 12:11; Status DC Propofol 200 mg STK-MED ONCE IV; Start 08/29/24 at 12:11; Stop 08/29/24 at 12:12; Status DC Neostigmine Methylsulfate 10 mg STK-MED ONCE IV; Start 08/29/24 at 12:11; Stop 08/29/24 at 12:12; Status DC Succinylcholine Chloride 200 mg STK-MED ONCE .ROUTE; Start 08/29/24 at 12:11; Stop 08/29/24 at 12:12; Status DC Midazolam HCl 2 mg STK-MED ONCE .ROUTE; Start 08/29/24 at 12:12; Stop 08/29/24 at 12:12; Status DC Rocuronium [place] 50 mg STK-MED ONCE .ROUTE; Start 08/29/24 at 12:12; Stop 08/29/24 at 12:12; Status DC Fentanyl Citrate 100 mcg STK-MED ONCE .ROUTE; Start 08/29/24 at 12:12; Stop 08/29/24 at 12:12; Status DC Bupivacaine HCl 2.5 mg STK-MED ONCE IJ; Start 08/29/24 at 13:12; Stop 08/29/24 at 13:12; Status DC Acetaminophen 100 ml @ As Directed STK-MED ONCE .ROUTE; Start 08/29/24 at 13:32; Stop 08/29/24 at 13:32; Status DC Fentanyl Citrate 100 mcg STK-MED ONCE .ROUTE; Start 08/29/24 at 13:34; Stop 08/29/24 at 13:34; Status DC Fentanyl Citrate 100 mcg STK-MED ONCE .ROUTE; Start 08/29/24 at 14:39; Stop 08/29/24 at 14:39; Status DC Indocyanine Green 25 mg STK-MED ONCE IJ Last administered on 08/29/24at 12:00; Start 08/29/24 at 12:00; Stop 08/29/24 at 14:46; Status DC Bupivacaine HCl 50 mg STK-MED ONCE IJ Last administered on 08/29/24at 13:30; Start 08/29/24 at 13:30; Stop 08/29/24 at 14:46; Status DC Fentanyl Citrate 100 mcg STK-MED ONCE .ROUTE; Start 08/29/24 at 15:00; Stop 08/29/24 at 15:01; Status DC Morphine Sulfate 2 mg STK-MED ONCE .ROUTE Last administered on 08/29/24at 15:31; Start 08/29/24 at 15:27; Stop 08/29/24 at 15:27; Status DC Simethicone 80 mg QID PO Last administered on 08/31/24at 16:54; Start 08/29/24 at 17:00; Stop 09/28/24 at 16:59 Tramadol HCl 50 mg Q4H PRN PO Last administered on 08/31/24at 11:51; Start 08/29/24 at 15:30; Stop 09/03/24 at 15:29 Lidocaine 1 each DAILY TP Last administered on 08/31/24at 08:25; Start 08/30/24 at 09:00; Stop 09/29/24 at 08:59 Fentanyl Citrate 100 mcg STK-MED ONCE .ROUTE Last administered on 08/29/24at 15:36; Start 08/29/24 at 15:33; Stop 08/29/24 at 15:34; Status DC Morphine Sulfate 2 mg ONCE ONCE IVP Last administered on 08/30/24at 22:36; Start 08/30/24 at 21:30; Stop 08/30/24 at 21:31; Status DC Bisacodyl 10 mg ONCE ONCE RC Last administered on 08/30/24at 22:34; Start 08/30/24 at 21:30; Stop 08/30/24 at 21:31; Status DC Lactulose 20 gm ONCE ONCE PO Last administered on 08/31/24at 13:50; Start 08/31/24 at 14:00; Stop 08/31/24 at 14:01; Status DC Potassium Chloride 100 ml @ 100 mls/hr AD PRN IV; Start 08/31/24 at 14:00; Stop 09/30/24 at 13:59 Potassium Chloride 20 meq AD PRN PO Last administered on 08/31/24at 16:54; Start 08/31/24 at 14:00; Stop 09/30/24 at 13:59 HARLAN CORCORAN Jr. Aug 31, 2024 16:56
[2024-09-01] VITALS: BP 95/44; PULSE 78; RESP 20; TEMP 97.8
[2024-09-01 04:00] VITALS: BP 114/69; PULSE 81; RESP 20; TEMP 97.8
[2024-09-01 05:15] LABS: HEMATOCRIT 32.5 % (36-48); MEAN CORPUSCULAR HEMOGLOBIN 26.9 pg (27.0-33.0); MEAN CORPUSCULAR HGB CONC 30.8 g/dL (32.0-36.0); MEAN CORPUSCULAR VOLUME 87.4 fL (79-99); RED BLOOD CELL COUNT(AUTO) 3.72 MIL/uL (4.00-5.50); RED CELL DISTRIBUTION WIDTH 13.7 % (11.0-15.5); WHITE BLOOD COUNT (AUTO) 10.6 K/uL (4.8-10.8)
[2024-09-01 05:46] LABS: ALBUMIN 2.9 g/dL (3.5-5.0); BILIRUBIN,TOTAL 0.5 mg/dL (0.2-1.0); CREATININE 0.6 mg/dL (0.5-1.0); MAGNESIUM 1.8 mg/dL (1.80-2.40); POTASSIUM 4.3 mmol/L (3.5-5.1); TOTAL PROTEIN, SERUM 6.4 g/dL (6.0-8.3)
[2024-09-01] MEDS: MAGNESIUM 2GM PREMIX 50ML 50 ML IV PRN (07:37)
[2024-09-01 08:00] VITALS: BP 106/62; PULSE 64; RESP 19; TEMP 97.7
[2024-09-01 08:35] VITALS: O2SAT 96
--- NOTE | 2024-09-01 09:33 | PN ---
[facility] PROGRESS NOTE Date of Service: Sep 01, 2024 Time of Service: 09:32 SUBJECTIVE: Ms. Perez is a 24-year-old female that was seen and examined on 08/28/2024. Patient is a good historian of personal health. Patient's mother Karuna was at bedside Patient reported that she came to the emergency department with a chief complaint of abdominal pain. Location is right upper quadrant. Duration on and off. Character is described as sharp and pressure. There was no alleviating factors. Symptoms aggravated with eating. Patient reported associated vomiting x5 episodes. Patient also reported she was diagnosed with gallstones in February of 2024. In the emergency department WBCs 19, potassium 3.4. Chest x-ray no acute pulmonary infiltrates. Abdominal ultrasound small gallstones in the gallbladder neck region, no ductal dilatation seen, no hydronephrosis seen. Patient admitted for further evaluation and medical management. 08/29 patient admitted to the medical floor, blood pressure 105/59, afebrile, saturating normal on room air, white blood cell count trending down, 12.2, hemoglobin 10.3, hematocrit 32.3, platelet count of 356, sodium 139, potassium 3.8, BUN of 10, creatinine 0.6, total calcium 8.5, liver enzymes with a total bilirubin of 0.4, AST of 33, ALT of 47, alkaline phosphatase of 89. Toxicology screen positive for marijuana. Urine test negative. Patient evaluated by General surgery, HIDA scan requested, nonvisualization of gallbladder activity at 2:00 a.m. suggestive of acute cholecystitis. Patient on Zosyn IV pharmacy to dose. Currently on pain control with morphine 2 mg IV q.4 hours p.r.n. and Toradol 50 mg IV every 6 hours as needed. Counseling provided in terms of marijuana use. During my visit the patient comfortably in bed, alert oriented x3, getting good pain control with current medical management, NPO, scheduled for laparoscopic cholecystectomy today per discussion with the RN. 08/30 patient remains admitted to the medical floor, comfortably in bed, alert oriented x3, getting IV antibiotics, blood pressure 143/59, afebrile, saturating normal on room air, hemoglobin 10.3, hematocrit 33.1, white blood cell count of 14.5, platelet count of 338. Sodium 139, potassium 4.3, BUN of five, creatinine 0.5, magnesium 2.0, liver enzymes mildly elevated. Patient underwent successful robotic assisted cholecystectomy with ICG green immunofluorescence secondary to acute gangrenous cholecystitis. Tolerated the procedure well. Patient remains on Zosyn IV. Currently on full liquid diet, continue to follow surgical input and recommendation. 08/31 patient remains admitted to the medical floor, blood pressure 104/67, afebrile, saturating normal on room air, WBC slowly trending down, today 12.1, hemoglobin 9.7, hematocrit 31.3, platelet count of 339. Sodium 139 potassium 3.7 BUN of seven, creatinine 0.6, magnesium 2.0. Patient remains on Zosyn IV. Continue to monitor WBC in a.m., continue current pain medication with the adjustment as needed, continue to follow surgical input and recommendation. Patient currently on GI soft diet. Patient tolerating diet well, no nausea. Feels mild abdominal discomfort, she is passing gas, but no good bowel movement for the last four days, received laxative earlier this morning, started to pass very small amount of stool, we will give lactulose. 09/01 remains admitted to the medical floor, hemodynamically stable, afebrile, leukocytosis resolved, tolerating diet. Case discussed with the RN, cleared from surgical standpoint to be discharged home and follow up as an outpatient in one week. REVIEW OF SYSTEMS CONSTITUTIONAL: Denies fevers, chills, or night sweats. No unintentional weight loss reported. NEUROLOGICAL: Denies headache, amaurosis fugax, motor weakness, sensory deficit, vertigo/spinning sensation, gait abnormalities, or tremors. ENT: No hearing loss, otalgia, otorrhea, rhinitis, rhinorrhea, hoarseness, or sore throat. CARDIOVASCULAR: Denies any exertional angina, dyspnea on exertion, orthopnea, paroxysmal nocturnal dyspnea, palpitations, life-threatening arrhythmias, claudication. PULMONARY: Denies any shortness of breath, cough, phlegm/sputum, hemoptysis, pleuritic chest pain. SLEEP: Denies morning headaches, daytime somnolence or napping. Denies difficulty falling asleep, staying asleep, waking from sleep. Denies knowledge of snoring. GASTROINTESTINAL: Denies any type of dysphagia to either liquids or solids. Denies nausea, vomiting, pyrosis, early satiety, abdominal pain, diarrhea, constipation, or changes in stool consistency or caliber. Denies coffee-ground emesis, hematemesis, hematochezia, or melanotic stools. GENITOURINARY: Denies frequency, urgency, nocturia, hematuria or incontinence (Storage/Irritative symptoms.) Low urinary stream, straining to void, urinary intermittency or hesitancy, splitting of the voiding stream, terminal dribbling. ENDOCRINOLOGIC: Denies polyuria, polydipsia, polyphagia or heat/cold intolerances. HEMATOLOGIC: Denies thrombophilia/previous clots, or coagulopathy/bleeding disorders. ONCOLOGIC: Denies personal history of malignancy. DERMATOLOGIC: Denies rashes or pruritus. PSYCHIATRIC: Denies any suicidal or homicidal ideation. Denies hallucinations. PHYSICAL EXAM GENERAL APPEARANCE: The patient is awake, alert, and oriented, in no acute cardiopulmonary distress. NEUROLOGICAL: Cranial nerves II-XII grossly intact. Motor is 5/5 in bilateral upper and lower extremities proximal to distal. No sensory deficits. HEENT: Face is symmetric. Pupils are equal and reactive. Extraocular movements are intact. NECK: Supple. No JVD. No thyromegaly. No submental, submandibular, pre-/postauricular, occipital or supraclavicular lymphadenopathy. CHEST: Normal chest expansion. No Telemetry. LUNGS: Absence of any rales, rhonchi or any wheezing. CARDIOVASCULAR: Regular. S1 and S2 normal. No appreciable rubs, murmurs or gallops. ABDOMEN: Soft, nontender, and nondistended. There is no rebound, voluntary guarding, or rigidity. : Deferred. No Hines. EXTREMITIES: Non-edematous and not cyanotic. No clubbing. Good capillary refill. SKIN: No skin breakdown. Vital Signs (last 8hr) Date Time Temp Pulse Resp B/P (MAP) Pulse Ox O2 Delivery O2 Flow Rate FiO2 09/01/24 08:00 97.7 64 19 106/62 96 Room Air 09/01/24 04:00 97.9 81 20 114/69 97 LABS: Laboratory: Test 09/01/24 04:40 Range/Units White Blood Count 10.6 4.8-10.8 K/uL Red Blood Count 3.72 L 4.00-5.50 MIL/uL Hemoglobin 10.0 L 12.0-16.0 g/dL Hematocrit 32.5 L 36-48 % Mean Corpuscular Volume 87.4 79-99 fL Mean Corpuscular Hemoglobin 26.9 L 27.0-33.0 pg Mean Corpuscular Hemoglobin Concent 30.8 L 32.0-36.0 g/dL Red Cell Distribution Width 13.7 11.0-15.5 % Platelet Count 377 130-400 K/uL Mean Platelet Volume 9.7 7.5-10.5 fL Nucleated Red Blood Cells 0.0 0.0-0.19 % Sodium Level 139 136-145 mmol/L Potassium Level 4.3 3.5-5.1 mmol/L Chloride Level 102 101-111 mmol/L Carbon Dioxide Level 35 H 21-32 mmol/L Blood Urea Nitrogen 5 L 7-18 mg/dL Creatinine 0.6 0.5-1.0 mg/dL Glomerular Filtration Rate Calc 130 >90 mL/min Random Glucose 103 70-105 mg/dL Total Calcium 8.8 8.5-10.1 mg/dL Magnesium Level 1.80 1.80-2.40 mg/dL Total Bilirubin 0.5 0.2-1.0 mg/dL Aspartate Amino Transf (AST/SGOT) 39 H 10-37 U/L Alanine Aminotransferase (ALT/SGPT) 78 12-78 U/L Alkaline Phosphatase 80 50-136 U/L Total Protein 6.4 6.0-8.3 g/dL Albumin 2.9 L 3.5-5.0 g/dL Current Medications Medications (Trade) Dose Ordered Sig/Trisha Route PRN Reason Start Time Stop Time Status Last Admin Dose Admin Acetaminophen (TYLenol 325MG TAB) 650 mg Q6H PRN PO TEMPERATURE GREATER THAN 101.5 08/28/24 04:30 09/27/24 04:29 08/28/24 10:31 650 MG Famotidine (Pepcid 20mg Tab) 20 mg DAILY PO 08/28/24 09:00 09/27/24 08:59 09/01/24 08:35 20 MG Hydralazine HCl (APRESOLine 20MG INJ) 10 mg Q6H PRN IV For:SBP above 160;DBP above 90 08/28/24 04:30 09/27/24 04:29 Ketorolac Tromethamine (toRADol) 15 mg Q6H PRN IV MODERATE PAIN (4-6) 08/28/24 12:30 08/29/24 15:32 DC 08/28/24 20:37 15 MG Lactated Ringer's 1,000 ml @ 100 mls/hr Q10H IV 08/28/24 04:30 09/27/24 04:29 09/01/24 08:35 100 MLS/HR Lidocaine (Lidocaine Patch 4%) 1 each DAILY TP 08/30/24 09:00 09/29/24 08:59 08/31/24 08:25 1 EACH Magnesium Sulfate 50 ml @ 0 mls/hr PROTOCOL PRN IV h 08/28/24 04:30 09/27/24 04:29 09/01/24 07:37 25 MLS/HR Morphine Sulfate (morPHINE 2MG SYG) 2 mg Q4H PRN IVP SEVERE PAIN (7-10) 08/28/24 04:30 09/04/24 04:29 09/01/24 02:14 2 MG Ondansetron HCl (zoFRAN 4MG INJ) 4 mg Q6H PRN IV NAUSEA/VOMITING 08/28/24 04:30 09/27/24 04:29 08/31/24 12:29 4 MG Piperacillin Sod/ Tazobactam Sod (Zosyn 3.375gm+NS 50ml) 3.375 gm Q8H IV 08/28/24 11:00 09/07/24 10:59 09/01/24 02:13 3.375 GM Potassium Chloride 100 ml @ 50 mls/hr AD PRN IV POTASSIUM PROTOCOL 08/28/24 04:30 08/31/24 13:59 DC 08/28/24 04:27 50 MLS/HR Potassium Chloride 100 ml @ 100 mls/hr AD PRN IV POTASSIUM PROTOCOL 08/31/24 14:00 09/30/24 13:59 Potassium Chloride (KCl 10% Elixir 20meq/15ml) 20 meq AD PRN PO POTASSIUM PROTOCOL 08/31/24 14:00 09/30/24 13:59 08/31/24 16:54 20 MEQ Simethicone (Mylicon) 80 mg QID PO 08/29/24 17:00 09/28/24 16:59 09/01/24 08:35 80 MG Tramadol HCl (UltRAM) 50 mg Q4H PRN PO MODERATE PAIN (4-6) 08/29/24 15:30 09/03/24 15:29 09/01/24 08:36 50 MG DIAGNOSTICS / RADIOLOGY: [ ] ASSESSMENT: Sepsis, POA Acute gangrenous cholecystitis, POA Fatty liver infiltration Status post Robotic assisted cholecystectomy with ICG green immunofluorescence 08/29/2024 Leukocytosis, POA Hypokalemia, POA Nausea, POA Vomiting, POA Toxicology screen positive for marijuana PLAN: patient remains admitted to the medical floor, hemodynamically stable, afebrile, leukocytosis resolved, tolerating diet, possible discharge home today. NEURO: Minimize central acting medications as possible. Fall Precautions. Well lighted room through the day and minimize interruptions through the night to prevent acute delirium. PULMONARY: Supplemental 02 as needed BiPAP as necessary, for respiratory distress Titrate Fio2 to keep Spo2 > or = 90% DuoNebs and CPT as needed IS hourly while awake for pulmonary hygiene prn Out of bed to chair as tolerated Maintain aspiration precautions at all times CARDIOVASCULAR: Follow hemodynamics. Vital signs per facility protocol GI & NUTRITION: Continue nutritional support Aspirations precautions Prokinetic agents and laxatives as needed KIDNEYS & ELECTROLYTES: Strict monitoring of intake and output Daily weights Avoid nephrotoxic agents Monitor electrolytes and replace as needed Goal urine output of 30mL/hr or 0.5mL/kg/hr Medications to be dosed according to renal function. Avoid contrast if possible ENDOCRINE: Maintain blood glucose between 100-180 at all times. Insulin sliding scale for blood glucose management Hypoglycemia and hyperglycemia protocol in place INFECTIOUS DISEASE: Trend temperature, WBC and procalcitonin level Follow cultures, deescalate antibiotics as soon as possible. Panculture if new onset fever HEMATOLOGY & COAGULATION: Monitor H&H. Keep Hgb > 7 Transfuse 1 unit of PRBC for Hgb < 7 Transfuse 1 pack of platelets of platelets < 20, 000 Watch for any signs and symptoms of bleeding SKIN: Pressure ulcer prevention per facility protocol Specialty mattress as needed ORTHO/REHAB Continue PT/OT PRN: MEDICATIONS Tylenol 650 mg po every 4 hrs for fever zofran 4 mg IV every 6 hrs for n/v Hydralazine 5 mg IV every 4 hrs systolic pressure > 160 bowel regiment: lactulose 20 gm PO BID PRN constipation Supportive measures: Continue GI and DVT prophylaxis Disposition: Pending improvement in clinical condition All questions answered time spent: > 35 min CASPER WONG MD Sep 01, 2024 09:33
--- NOTE | 2024-09-01 09:36 | NUR ---
SHELBI BOTELLO AT BEDSIDE. CLEARED PT. WILL BE LEAVING WITH DEMAR. FOLLOW UP WITH IN 1 WEEK. WILL PUT PRESCRIPTIONS IN. TO LEAVE INCISIONS OPEN TO AIR. ORDER FOR ABDOMINAL BINDER.
--- NOTE | 2024-09-01 11:30 | PN ---
GENERAL SURGERY PROGRESS NOTE Date/Time Patient Seen: [ 09/01/2024 09:30 AM] Problem List: [24-year-old female with Cholecystitis with cholelithiasis ] Interval History: [24-year-old female, postop day #3, robotic assisted cholecystectomy with ICG by Dr. Padgett Gallbladder was gangrenous, so patient will need oral antibiotics when discharged home Augementin 875 mg BID for 10 days DEMAR with serosanguineous output, about 50 cc in 24 hours Patient has been tolerating soft diet without any complaints of nausea or vomiting Abdomen is soft, with expected tenderness over surgical incisions, surgical incisions with luann in place, edges well approximated, no erythema or drainage Patient has been doing her incentive spirometer exercises and ambulating Patient states she has has had small bowel movements and passing gas WBCs down trending to 10.6 H&H stable at 10.0 and 32.5 Bilirubin 0.5 LFTs down trending to normal From surgical standpoint, patient may be discharged home today with oral antibiotics and ibuprofen for pain, when cleared by hospitalist DEMAR drain to stay in place and patient to follow-up in office in [address] Padgett to remove DEMAR drain No driving for 1 week No lifting of more than 15 lb for 4 weeks Cleansed surgical incisions with mild soap and water, then leave open to air Increase dietary fiber and water intake Continue ambulating and doing incentive spirometer exercises at home Dr. Padgett updated on patient's status ] Current Medications Medications (Trade) Dose Ordered Sig/Trisha Route Start Time Stop Time Status Last Admin Dose Admin Famotidine (Pepcid 20mg Tab) 20 mg DAILY PO 08/28/24 09:00 09/27/24 08:59 09/01/24 08:35 20 MG Lactated Ringer's 1,000 ml @ 100 mls/hr Q10H IV 08/28/24 04:30 09/27/24 04:29 09/01/24 08:35 100 MLS/HR Lidocaine (Lidocaine Patch 4%) 1 each DAILY TP 08/30/24 09:00 09/29/24 08:59 08/31/24 08:25 1 EACH Piperacillin Sod/ Tazobactam Sod (Zosyn 3.375gm+NS 50ml) 3.375 gm Q8H IV 08/28/24 11:00 09/07/24 10:59 09/01/24 11:04 3.375 GM Simethicone (Mylicon) 80 mg QID PO 08/29/24 17:00 09/28/24 16:59 09/01/24 08:35 80 MG Physical Examination: GENERAL: [No acute distress, female, comfortably sitting up in bed.] HEAD: [Normocephalic.] EYES: [Nonicteric sclera bilaterally.] ENT: [Hearing grossly intact.] NECK: [Supple.] LUNGS: [Clear breath sounds bilaterally.] HEART: [Normal rate and rhythm.] VASC: [Peripheral pulses +2 bilaterally.] ABD: [Bowel sounds normal, soft, surgical incisions with luann in place, edges well approximated, no erythema or drainage.] : [Not examined] EXT: [No edema.] SKIN: [No lesions noted.] NEURO: [Awake, alert, and oriented x3. No focal sensory or strength deficits noted.] Vital Signs (last 8hr) Date Time Temp Pulse Resp B/P (MAP) Pulse Ox O2 Delivery O2 Flow Rate FiO2 09/01/24 08:00 97.7 64 19 106/62 96 Room Air 09/01/24 04:00 97.9 81 20 114/69 97 Laboratory: [ ] Hematology Labs: Test 09/01/24 04:40 Range/Units White Blood Count 10.6 4.8-10.8 K/uL Red Blood Count 3.72 L 4.00-5.50 MIL/uL Hemoglobin 10.0 L 12.0-16.0 g/dL Hematocrit 32.5 L 36-48 % Mean Corpuscular Volume 87.4 79-99 fL Mean Corpuscular Hemoglobin 26.9 L 27.0-33.0 pg Mean Corpuscular Hemoglobin Concent 30.8 L 32.0-36.0 g/dL Red Cell Distribution Width 13.7 11.0-15.5 % Platelet Count 377 130-400 K/uL Mean Platelet Volume 9.7 7.5-10.5 fL Nucleated Red Blood Cells 0.0 0.0-0.19 % Chemistry Labs: Test 09/01/24 04:40 Range/Units Sodium Level 139 136-145 mmol/L Potassium Level 4.3 3.5-5.1 mmol/L Chloride Level 102 101-111 mmol/L Carbon Dioxide Level 35 H 21-32 mmol/L Blood Urea Nitrogen 5 L 7-18 mg/dL Creatinine 0.6 0.5-1.0 mg/dL Glomerular Filtration Rate Calc 130 >90 mL/min Random Glucose 103 70-105 mg/dL Total Calcium 8.8 8.5-10.1 mg/dL Magnesium Level 1.80 1.80-2.40 mg/dL Total Bilirubin 0.5 0.2-1.0 mg/dL Aspartate Amino Transf (AST/SGOT) 39 H 10-37 U/L Alanine Aminotransferase (ALT/SGPT) 78 12-78 U/L Alkaline Phosphatase 80 50-136 U/L Total Protein 6.4 6.0-8.3 g/dL Albumin 2.9 L 3.5-5.0 g/dL Diagnostics / Radiology: [Copy/Paste Echos/Imaging Report here] Impression and Plan: [ ] ATTESTATION BY PHYSICIAN I have seen and examined the patient. I reviewed the documentation, medical decision making, and treatment plan as noted by the mid-level provider above. I agree with the findings and plan of care. MD JANA Veras LETICIA A MARKET RISK ANALYST Sep 01, 2024 11:30
[2024-09-01] MEDS ORDERED: DOCU-116 PO (11:50)
[2024-09-01] MEDS ORDERED: IBUP-2077 PO (11:50)
[2024-09-01] MEDS ORDERED: AMOX1TAB16 PO (11:50)
[2024-09-01 12:00] VITALS: BP 104/60; PULSE 72; RESP 18; TEMP 98.8
--- NOTE | 2024-09-01 12:21 | NUR ---
DR. WONG AT BEDSIDE. WILL BE DISCHARGING PT. DC'D IV AT THIS TIME PER PT REQUEST. NO COMPLICATIONS.
--- NOTE | 2024-09-01 12:45 | DS ---
Discharge Summary Hospital Course Summary: Ms. Perez is a 24-year-old female that was seen and examined on 08/28/2024. Patient is a good historian of personal health. Patient's mother Karuna was at bedside Patient reported that she came to the emergency department with a chief complaint of abdominal pain. Location is right upper quadrant. Duration on and off. Character is described as sharp and pressure. There was no alleviating factors. Symptoms aggravated with eating. Patient reported associated vomiting x5 episodes. Patient also reported she was diagnosed with gallstones in February of 2024. In the emergency department WBCs 19, potassium 3.4. Chest x-ray no acute pulmonary infiltrates. Abdominal ultrasound small gallstones in the gallbladder neck region, no ductal dilatation seen, no hydronephrosis seen. Patient admitted for further evaluation and medical management. 08/29 patient admitted to the medical floor, blood pressure 105/59, afebrile, saturating normal on room air, white blood cell count trending down, 12.2, hemoglobin 10.3, hematocrit 32.3, platelet count of 356, sodium 139, potassium 3.8, BUN of 10, creatinine 0.6, total calcium 8.5, liver enzymes with a total bilirubin of 0.4, AST of 33, ALT of 47, alkaline phosphatase of 89. Toxicology screen positive for marijuana. Urine test negative. Patient evaluated by General surgery, HIDA scan requested, nonvisualization of gallbladder activity at 2:00 a.m. suggestive of acute cholecystitis. Patient on Zosyn IV pharmacy to dose. Currently on pain control with morphine 2 mg IV q.4 hours p.r.n. and Toradol 50 mg IV every 6 hours as needed. Counseling provided in terms of marijuana use. During my visit the patient comfortably in bed, alert oriented x3, getting good pain control with current medical management, NPO, scheduled for laparoscopic cholecystectomy today per discussion with the RN. 08/30 patient remains admitted to the medical floor, comfortably in bed, alert oriented x3, getting IV antibiotics, blood pressure 143/59, afebrile, saturating normal on room air, hemoglobin 10.3, hematocrit 33.1, white blood cell count of 14.5, platelet count of 338. Sodium 139, potassium 4.3, BUN of five, creatinine 0.5, magnesium 2.0, liver enzymes mildly elevated. Patient underwent successful robotic assisted cholecystectomy with ICG green immunofluorescence secondary to acute gangrenous cholecystitis. Tolerated the procedure well. Patient remains on Zosyn IV. Currently on full liquid diet, continue to follow surgical input and recommendation. 08/31 patient remains admitted to the medical floor, blood pressure 104/67, afebrile, saturating normal on room air, WBC slowly trending down, today 12.1, hemoglobin 9.7, hematocrit 31.3, platelet count of 339. Sodium 139 potassium 3.7 BUN of seven, creatinine 0.6, magnesium 2.0. Patient remains on Zosyn IV. Continue to monitor WBC in a.m., continue current pain medication with the adjustment as needed, continue to follow surgical input and recommendation. Patient currently on GI soft diet. Patient tolerating diet well, no nausea. Feels mild abdominal discomfort, she is passing gas, but no good bowel movement for the last four days, received laxative earlier this morning, started to pass very small amount of stool, we will give lactulose. 09/01 remains admitted to the medical floor, hemodynamically stable, afebrile, leukocytosis resolved, tolerating diet. Case discussed with the RN, cleared from surgical standpoint to be discharged home and follow up as an outpatient in one week. Rad Technologist(s): General surgery Procedure(s): Status post Robotic assisted cholecystectomy with ICG green immunofluorescence 08/29/2024 Assessment/Plan: Final diagnosis Sepsis, POA Acute gangrenous cholecystitis, POA Fatty liver infiltration Status post Robotic assisted cholecystectomy with ICG green immunofluorescence 08/29/2024 Leukocytosis, POA Hypokalemia, POA Nausea, POA Vomiting, POA Toxicology screen positive for marijuana Discharge Instructions: Patient to be discharged home today, to follow with General surgery as an outpatient in one week for removal of DEMAR drain. Patient to return to the hospital if her condition changes, both the patient and the mother agreed and understood the information provided. Home Medications: No Active Prescriptions or Reported Meds Time spent arranging discharge: 31-60 minutes CASPER WONG MD Sep 01, 2024 12:45
--- NOTE | 2024-09-01 13:45 | NUR ---
DISCHARGE. DEMAR DRESSING CHANGED. OUTPUT:5ML. NO COMPLICATIONS. TEACHINGS GIVEN ON HOW TO CHANGE DRESSING. GAUZE, DEMAR DRESSING, AND TAPE WAS GIVEN PT TO TAKE HOME. AWARE TO FOLLOW UP WITH DR. BARTLETT IN 1 WEEK. PT HAS PHONE NUMBER AVAILABLE. ANSWERED ALL QUESTIONS.
== END 2024-09-01 14:50 | disposition home or self-care (01) | DRG 854 ==
LOC: EDH 01:30 → EDHIP 01:31 → 3DH 12:40
PROVIDERS: ADMIT Internal Medicine; ATTEND Internal Medicine
PROC: 8E0W4CZ Robotic Assisted Procedure of Trunk Region, Percutaneous Endoscopic Approach (ICD-10-PCS; 2024-08-29)
PROC: 4A1BXSH Monitoring of Gastrointestinal Vascular Perfusion using Indocyanine Green Dye, External Approach (ICD-10-PCS; 2024-08-29)
PROC: 0FT44ZZ Resection of Gallbladder, Percutaneous Endoscopic Approach (ICD-10-PCS; principal; 2024-08-29 12:46)
DX: A41.9 Sepsis, unspecified organism (principal); K80.12 Calculus of gallbladder with acute and chronic cholecystitis without obstruction; E87.6 Hypokalemia; K82.A1 Gangrene of gallbladder in cholecystitis; K76.0 Fatty (change of) liver, not elsewhere classified
CPT/HCPCS: 36415; 71045; 76705; 78227; 80048; 80053; 80076; 80305; 81001; 81025; 83605; 83690; 83735; 84100; 84145; 85025; 85027; 85610; 85730; 87040; 87086; 93005; 96365; 96375; 96376; 99285; A4606; A9537; G0378; J0330; J1100; J1171; J1885; J2250; J2270; J2405; J2470; J2543; J2704; J2710; J3010; J3475; J3480; J3490; J7030; J7120; A4215; A4216; A4222; A4223; A4600; A4649; A4930; J0665

== ENCOUNTER 2024-09-01 18:00 | Emergency (ER) | payer SELFPAY ==
[~2024-09-01] VITALS: Ht 162.6 cm; Wt 79.8 kg
[~2024-09-01 18:00] MED LIST: AMOX1TAB16 PO; DOCU-116 PO; IBUP-2077 PO
[2024-09-01 18:01] VITALS: BP 131/87; PULSE 92; RESP 16; TEMP 98.3
--- NOTE | 2024-09-01 18:10 | ERN ---
ED Note History of Present Illness Stated Complaint: SURGICAL SITE PAIN Chief Complaint: Post-Op Problem Time Seen by MD: 18:02 Dictation: PATIENT IS A 24-YEAR-OLD FEMALE HERE WITH HER MOTHER WITH COMPLAINTS OF SEVERE RIGHT AND LEFT UPPER QUADRANT PAIN TENDERNESS ONSET ON DISCHARGED FROM THE HOSPITAL THIS AFTERNOON. SHE IS STATUS POST A ROBOTIC CHOLECYSTECTOMY BY MARCH HE WILL 08/29/2025. SHE STATES SHE WENT HOME TODAY HOWEVER SHE WOULD STILL IN PAIN. SHE HAS A DEMAR DRAIN TO BULB SUCTION TO THE RIGHT UPPER QUADRANT, MODERATE AMOUNT OF SEROSANGUINEOUS DRAINAGE NOTED. Allergies: Coded Allergies: No Known Drug Allergies (Unverified Allergy, Unknown, 07/24/24) Home Meds Active Scripts Docusate Sodium (Colace) 100 Mg Capsule, 1 CAP PO DAILY for stool softener for 30 Days, #30 CAP 0 Refills Prov:JANA,RADHA A AUDIT PRACTICE INTERN 09/01/24 Ibuprofen (Ibuprofen 800 mg Tab) 800 Mg Tab, 1 TAB PO TID for pain for 10 Days, #30 TAB 0 Refills Prov:JANA,RADHA A AUDIT PRACTICE INTERN 09/01/24 Amoxicillin/Potassium Clav (Amox Tr-K Clv 875-125 mg Tab) 875 Mg-125 Mg Tablet, 1 TAB PO BID for 10 Days, #20 TAB 0 Refills Prov:JANA,RADHA A AUDIT PRACTICE INTERN 09/01/24 Past Medical History Past Medical History: Gallstones Surgical History: Cholecystectomy Social History: Negative, Lives with family LMP: Aug 28, 2024 RN Note Reviewed/Agreed w/PFSH: Yes Review of System Dictation CONSTITUTIONAL: NEGATIVE EXCEPT FOR HPI HEAD/FACE: NEGATIVE EXCEPT FOR HPI EENT: NEGATIVE EXCEPT FOR HPI RESPIRATORY: NEGATIVE EXCEPT FOR HPI GASTROINTESTINAL/ABDOMINAL: NEGATIVE EXCEPT FOR HPI SEVERE RIGHT AND LEFT UPPER QUADRANT PAIN TENDERNESS DEMAR DRAIN TO BULB SUCTION RIGHT UPPER QUADRANT GENITOURINARY: NEGATIVE EXCEPT FOR HPI MUSCULOSKELETAL: NEGATIVE EXCEPT FOR HPI INTEGUMENTARY: NEGATIVE EXCEPT FOR HPI NEUROLOGICAL/PSYCH: NEGATIVE EXCEPT FOR HPI HEMATOLOGIC/LYMPHATIC: NEGATIVE EXCEPT FOR HPI ALL SYSTEMS NEGATIVE, EXCEPT NOTED ABOVE. 13 POINT REVIEW OF SYSTEMS ASSESSED AND ALL NEGATIVE EXCEPT FOR ABOVE. Initial Vital Sign VS Vital Signs Date Time Temp Pulse Resp B/P (MAP) Pulse Ox O2 Delivery O2 Flow Rate FiO2 09/01/24 18:01 98.2 92 16 131/87 95 Room Air 0 Physical Exam Dictation VITAL SIGNS REVIEWED GENERAL APPEARANCE: ALERT, ORIENTED X 3, SEVERE ACUTE DISTRESS, WELL DEVELOPED, NOURISHED. OBESE HEAD AND FACE: NON-TRAUMATIC. EYES: PERRL, PINK CONJUNCTIVAS, EYELID NO TRAUMA, ANTERIOR CHAMBER WITH ARCUS SENILIS. EARS: PINNAS INTACT AND NO SIGNS OF TRAUMA OR ERYTHEMA EAR CANALS CLEAR AND NO DISCHARGE TM NO ERYTHEMA NOSE: NO DISCHARGE, NO BLEEDING. OROPHARYNX: MOUTH NORMAL, TONGUE PINK, PHARYNX CLEAR,NO ERYTHEMA, TONSILS NO EXUDATES, NO ABSCESSES NOTED, MUCOUS MEMBRANE MOIST NECK: SUPPLE, NON-TENDER, NO THYROMEGALY, NO MASSES, NO JVD, NO BRUITS BREAST:DEFERRED CHEST:NO TENDERNESS, NO CREPITUS, NO PARADOXICAL MOVEMENT, NO RETRACTIONS LUNGS:CLEAR, WELL-VENTILATED, SYMMETRIC, NO RALES, NO WHEEZING, NO RHONCHI, NO STRIDOR, GOOD BREATH SOUNDS BILATERALLY HEART: REGULAR RATE, REGULAR RHYTHM, NO MURMUR, NO GALLOPS VASCULAR: NO PERIPHERAL EDEMA, ABDOMEN: SOFT, POSITIVE BOWEL SOUNDS, NONDISTENDED, NO GUARDING, DEMAR DRAIN TO BULB SUCTION TO RIGHT UPPER QUADRANT. DIFFUSE BILATERAL UPPER QUADRANT PAIN AND TENDERNESS. RECTAL: DEFERRED GENITAL: DEFERRED NEUROLOGICAL: NORMAL SPEECH, MOTOR FUNCTION INTACT, SENSORY FUNCTION INTACT MUSCULOSKELETAL: NECK NONTENDER, FULL RANGE OF MOTION, BACK NONTENDER, FULL RANGE OF MOTION, EXTREMITIES: NONTENDER, FULL RANGE OF MOTION SKIN: COLOR PINK, DRY, NO TURGOR, NO RASH, NO LACERATIONS, NO ABRASIONS, NO CONTUSIONS. LYMPHATIC: DEFERRED Results (Laboratory/Radiology) Labs Reviewed?: Yes ED Course ED Course Medical Decision Making [facility] 1840/PATIENT IS SIGNED OUT AGAINST MEDICAL ADVICE STATES MY PAIN MEDS ALREADY AT THE PHARMACY SO I AM GOING TO GO PICK HIM UP. SHE SIGNED OUT AGAINST MEDICAL ADVICE AND LEFT THE EMERGENCY ROOM WITH HER MOTHER. DX & DISP Disposition: AMA Departure Impression: Primary Impression: Postoperative abdominal pain Condition: Stable Referrals: SELF,REFERRAL (PCP) Time of Disposition: 18:42 I have reviewed the case, and I agree with, Diagnosis and Plan TATYANA MATTHEWS NP Sep 01, 2024 18:10 DELFINA JEWELL DO Sep 05, 2024 04:27
[2024-09-01] MEDS ORDERED: morPHINE 2 MG SYG IVP ONE (18:30)
[2024-09-01] MEDS ORDERED: 0.9%NACL 1000ML 1,000 ML IV ONE (18:30)
[2024-09-01] MEDS ORDERED: ondanSETRON 4MG INJ IVP ONE (18:30)
== END 2024-09-01 18:36 | disposition left against medical advice (07) ==
LOC: EDH 18:00
DX: G89.18 Other acute postprocedural pain (principal); R10.12 Left upper quadrant pain; Z79.1 Long term (current) use of non-steroidal anti-inflammatories (NSAID); Z90.49 Acquired absence of other specified parts of digestive tract
CPT/HCPCS: 99281; 99282